=== PATIENT | female | born 1995 | race Caucasian/White ===

== ENCOUNTER 2017-07-17 21:16 | Emergency (ER) | payer OTHER, MEDICAID ==
[~2017-07-17] VITALS: Ht 160 cm; Wt 68.0 kg
--- OUTSIDE RECORDS SUMMARY | 2017-07-17 21:34 | External Medical Summary Rpt | CCD ---
Author Author , MARY Organization MARY Address Unknown Phone Care Team Providers Care Machine Accountant Name Role Phone ALLERGY, ASTHMA & Unavailable Unavailable IMMUNOLOGY, ALLERGY, ASTHMA & IMMUNOLOGY [facility], Unavailable Unavailable [facility] BLU, BLU Unavailable Unavailable AWOSIKA CHRISS, AWOSIKA Unavailable Unavailable CHRISS MERARY ADA, MERARY Unavailable Unavailable ADA MERARY ADA, MERARY Unavailable Unavailable ADA GEORGE, GEORGE Unavailable Unavailable MCDANIELS, MCDANIELS Unavailable Unavailable MCDANIELS G, MCDANIELS G Unavailable Unavailable MCDANIELS G, MCDANIELS G Unavailable Unavailable MCDANIELS GAR, MCDANIELS Unavailable Unavailable GAR LAWRENCE DIXON, LAWRENCE DIXON Unavailable Unavailable LAWRENCE DIXON, LAWRENCE DIXON Unavailable Unavailable TRACIE OTILIA, TRACIE OTILIA Unavailable Unavailable TRACIE OTILIA, TRACIE OTILIA Unavailable Unavailable HAGENSCHNEIDER DANETTE, Unavailable Unavailable HAGENSCHNEIDER DANETTE HARLAMERT HEN, Unavailable Unavailable HARLAMERT HEN JAMES, JAMES Unavailable Unavailable JOYNER, JOYNER Unavailable Unavailable HOGGE ROOPA, HOGGE ROOPA Unavailable Unavailable HOGGE ROOPA, HOGGE ROOPA Unavailable Unavailable HURST KENNY, HURST KENNY Unavailable Unavailable HURST KENNY, HURST KENNY Unavailable Unavailable TY, TY Unavailable Unavailable TY ROBE, TY Unavailable Unavailable [facility], [facility] Unavailable Unavailable [facility] LIVAS SAMMI, LIVAS SAMMI Unavailable Unavailable LIVAS SAMMI, LIVAS SAMMI Unavailable Unavailable [facility], Unavailable Unavailable [facility] Unavailable [facility]AT, [facility] Unavailable Unavailable [facility], [facility] Unavailable Unavailable MEDICAL, [facility] Unavailable Unavailable MEDICAL, [facility] Unavailable [facility]available [facility] Unavailable [facility]available [facility] ALLA NATH Unavailable Unavailable DEYVI OLZESKI DEYVI, OLZESKI Unavailable Unavailable DEYVI ZUNIGA, UZNIGA Unavailable Unavailable DOUGLAS ROS, DOUGLAS Unavailable Unavailable ROS PORNOY JHON, PORNOY Unavailable Unavailable JHON MORENA GWENDOLYN, MORENA Unavailable Unavailable GWENDOLYN MORENA GWENDOLYN, MORENA Unavailable Unavailable GWENDOLYN [facility], Unavailable Unavailable [facility], Unavailable Unavailable [facility], SHOWER Unavailable Unavailable [facility], SHOWER Unavailable Unavailable [facility] SPADY, SPADY Unavailable Unavailable CLARK, CLARK Unavailable Unavailable CLARK KER, CLARK KER Unavailable Unavailable RICK HODAN, RICK Unavailable Unavailable HODAN BRIA DON, BRIA Unavailable Unavailable DON BRIA DON, BRIA Unavailable Unavailable DON BRIA SHIREEN, BRIA Unavailable Unavailable SHIREEN Purpose Continuity of Care Document - 10-19-2011 through 2016 Problems Code Diagnosis DOS Provider Status E162 HYPOGL[facility]EMI [facility]-17-[facility]ICAL K047 PERIAPICAL 05-17-2017 [facility] ABSCESS N EMERGENCY WITHOUT PHYS SINUS L239 ALLERGIC 05-17-2017 [facility] CONTACT [facility] DERMATITIS UNSPECIFIED CAUSE Z789 OTHER 05-17-2017 [facility] SPECIFIED P[facility] HEALTH STATUS Z880 ALLERGY 05-17-2017 [facility] STATUS TO REGIONAL [place] MEDICAL H5213 MYOPIA 03-22-2017 [facility] OPTICAL K30622 UNSPECIFIED 12-21-2016 [facility] ASTHMA REGIONAL UNCOMPLICAT MEDICAL ED K219 GASTRO-ESOP 12-21-2016 [facility] H REFLUX REGIONAL DISEASE MEDICAL WITHOUT ESOPHAGITIS K811 CHRONIC 12-21-2016 [facility] CHOLECYSTIT GENERAL IS SURGERY K828 OTHER 12-21-2016 [facility] SPECIFIED REGIONAL DISEASES OF MEDICAL GALLBLADDER Z6829 BODY MASS 12-21-2016 [facility] INDEX BMI REGIONAL 29.0-29.9 MEDICAL ADULT Z720 TOBACCO USE 12-21-2016 [facility] REGIONAL MEDICAL R1084 GENERALIZED 11-29-2016 [facility] ABDOMINAL REGIONAL PAIN MEDICAL R110 NAUSEA 11-29-2016 [facility] R109 UNSPECIFIED 11-20-2016 [facility] PAIN ASSOCIAT R112 NAUSEA WITH 11-20-2016 [facility] UNSPECIFIED ASSOCIAT J309 ALLERGIC 08-06-2016 ALLERGY, RHINITIS ASTHMA & UNSPECIFIED IMMUNOLOGY J02733 ENCOUNTER 07-16-2016 [facility] E CONTRACEPT DEVICE Z309 ENCOUNTER 07-16-2016 [facility] VE MANAGEMENT UNS [id number] PAIN IN 06-29-2016 [facility] LEFT ARM REGIONAL MEDICAL Z3040 ENCOUNTER 06-29-2016 [facility] SURVEILLANC ASSOCIAT E CONTRACEPTI VES UNS B86 SCABIES 06-01-2016 [facility] J3089 OTHER 06-01-2016 [facility] ALLERGIC PSC RHINITIS D07189 OTHER 06-01-2016 [facility] ASTHMA PSC L2389 ALLERGIC 06-01-2016 [facility] CONTACT [facility] DERMATITIS DUE TO OTHER AGENTS N898 OTHER 04-18-2016 MEDICAL SPECIFIED DIAGNOSTIC NONINFLAMMA [facility] TORY DISORDERS VAGINA R27852 ENCOUNTER 04-18-2016 MEDICAL PSYCHOLOGICAL SCIENCE PROFESSOR EXAM DIAGNOSTIC GENERAL RTN [facility] W/O ABNORMAL FIND Z113 ENCOUNTER 04-18-2016 MEDICAL SCREEN DIAGNOSTIC INFECTIONS [facility] SEXL MODE TRANSMISSN Z118 ENCOUNTER 04-18-2016 MEDICAL SCREEN DIAGNOSTIC OTHER [facility] INFECTIOUS & PARASITIC DZ H1045 OTHER 08-16-2015 ALLERGY, CHRONIC ASTHMA & ALLERGIC IMMUNOLOGY CONJUNCTIVI TIS J0190 ACUTE 08-16-2015 ALLERGY, SINUSITIS ASTHMA & UNSPECIFIED IMMUNOLOGY 3671 MYOPIA 06-22-2015 MERARY ADA 6828 CELLULITIS 02-11-2015 [facility] AND ABSCESS PSC OF OTHER SPECIFIED SITE 6825 CELLULITIS 02-09-2015 [facility] ABSCESS [facility] OF BUTTOCK 6823 CELLULITIS 02-08-2015 [facility] AND ABSCESS N EMERGENCY OF UPPER PHYS ARM AND FOREARM 87325 UNS 01-27-2015 [facility] GASTRITIS&G PSC ASTRODUODIT IS W/O MENTION HEMORR 6260 ABSENCE OF 01-27-2015 [facility] MENSTRUATIO PSC N 4619 ACUTE 01-11-2015 [facility] SINUSITIS, PSC UNSPECIFIED V2540 UNSPECIFIED 07-28-2014 [facility] VE SURVEILLANC E 19106 ASTHMA 06-24-2014 [facility] UNSPECIFIED PSC WITH EXACERBATIO N V255 INSERTION 04-20-2013 LAWRENCE DIXON OF IMPLANTABLE SUBDERMAL CONTRACEPTI VE V242 ROUTINE 04-03-2013 HOGGE ROOPA FOLLOW-UP V258 OTHER 04-03-2013 HOGGE ROOPA SPECIFIED CONTRACEPTI VE MANAGEMENT 36870 POOR 02-26-2013 TRACIE OTILIA GROWTH MGMT MOTH ANTPRTM COND/COMP V270 OUTCOME OF 02-26-2013 TRACIE OTILIA DELIVERY SINGLE LIVEBORN 85038 ASTHMA, 02-24-2013 [facility] UNSPECIFIED REGIONAL , MEDICAL UNSPECIFIED STATUS 650 NORMAL 02-24-2013 HURST KENNY DELIVERY 86383 POOR 02-24-2013 [facility] GROWTH REGIONAL AFFECT MEDICAL MANAGEMENT MOTH DELIV 37093 OTH 02-24-2013 [facility] [place] [facility] CONDS AFFECT MANAGEMENT MOTH DELIV 26790 ABN FETL 02-24-2013 [facility] HRT REGIONAL RATE/RHYTHM MEDICAL DELIV W/WO ANTPRTM COND 48002 HIGH 02-24-2013 [facility] VAG[facility] REGIONAL LACERATION MEDICAL WITH DELIVERY 90513 UTERINE 02-20-2013 TRACIE OTILIA SIZE DATE DISCREPANCY ANTPRTM COND/COMPL V220 SUPERVISION 02-20-2013 TRACIE OTILIA OF NORMAL FIRST V2383 SUPERVISION 02-20-2013 TRACIE OTILIA HIGH-RISK PG YOUNG PRIMIGRAVID A V284 02-20-2013 TRACIE OTILIA SCR GROWTH RETARDATION USING US 6259 UNSPEC 02-06-2013 [facility] W/FEMALE GENITAL ORGANS V286 SCREENING 02-06-2013 MORENA GWENDOLYN OF STREPTOCOCC US B 4779 ALLERGIC 02-03-2013 LIVAS SAMMI RHINITIS CAUSE UNSPECIFIED 15237 OTHER 02-03-2013 LIVAS SAMMI DISEASES OF NASAL CAVITY AND SINUSES V061 NEED PROPH 01-22-2013 SHOWER WALTERS VAC W/COMB DIPHTH-TETA NUS-PERTUSS VAC 0419 BACTERIAL 01-21-2013 ALLA CARNES INFECTION UNSPECIFIED CCE & UNS SITE 30638 UNSPECIFIED 01-21-2013 ALLA CARNES VAGINITIS AND VULVOVAGINI TIS 14955 UNSPECIFIED 01-21-2013 ALLA CARNES ABNORMALITY OF LABOR ANTEPARTUM V6545 COUNSELING 01-08-2013 ALLA CARNES OTHER SEXUALLY TRANSMITTED DISEASES V2889 OTHER 12-12-2012 TR[facility] OT[facility]IA SPECIFIED SCREENING V2881 ENCOUNTER 10-17-2012 BRIA DOBBS FOR ANATOMIC SURVEY 3829 UNSPECIFIED 09-07-2012 [facility] OTITIS REGIONAL MEDIA MEDICAL 6268 OTH D/O 08-12-2012 [facility] MENSTRUATIO N&OTH ABN BLEED FE GNT TRACT V0481 NEED 08-12-2012 [facility] PROPHYLACTI C VACCINATION &INOCULATIO N FLU V7242 08-12-2012 [facility] DOBBS EXAMINATION OR TEST POSITIVE RESULT 15170 WHEEZING 07-15-2012 [facility] 7862 COUGH 10-16-2012 [facility] 490 BRONCHITIS 07-08-2012 MCDANIELS G NOT SPECIFIED ACUTE OR CHRONIC V7231 ROUTINE 05-05-2012 [facility] DOBBS GYNECOLOGIC AL EXAMINATION V7388 SPECIAL SCR 05-05-2012 BRIA RINKU EXAMINATION OTH SPEC CHLAMYDIAL DZ V745 SCREENING 05-05-2012 BRI[facility] DOBBS EXAMINATION FOR VENEREAL DISEASE 920 CONTUSION 04-28-2012 CLARK KER OF FACE SCALP AND NECK EXCEPT EYE E9179 OTHER 04-28-2012 CLARK KER STRIKING AGAINST W/WO SUBSEQUENT FALL 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 6822 CELLULITIS 03-14-2012 ENEDELIA Seymour AND ABSCESS OF TRUNK 72519 ACUTE 02-12-2012 LIVAS SAMMI ATOPIC CONJUNCTIVI TIS 6929 CONTACT 11-26-2011 ENEDELIA Seymour DERMATITIS& OTHER ECZEMA DUE UNSPEC CAUSE 94461 OTHER FOOT 11-26-2011 [facility] 44305 UNSPECIFIED 10-19-2011 ENEDELIA Seymour VIRAL INFECTION IN CCE & UNS SITE 462 ACUTE 10-19-2011 ENEDELIA Seymour PHARYNGITIS Allergies, Adverse Reactions, Alerts Clinical Alert Notifications Alert Asthma: no influenza vaccine in the last 365 days Medications Na ND Rx Da Fi Fi Am Da Di Ph RX Ph St me C No te ll ll ou ys ag ar # ys at rm s nt no ma ic us Or Da si cy ia de te s n re d CL 63 08 09 40 10 00 RI Ac IN 30 -1 -2 .0 00 L- ti DA 40 8- 2- 00 07 MA ve MY 69 20 20 90 RT CI 20 17 17 03 N 5 25 PH HC AR L MA 15 CY 0 MG #1 56 CA 9 PS UL E PHILLIPS 00 08 09 3. 28 00 WA Ac LA 37 -1 -1 00 00 L- ti NE 83 0- 5- 0 07 MA ve 34 20 20 89 RT PA 05 17 17 21 TC 3 33 PH H AR MA CY #1 56 9 PHILLIPS 00 06 08 3. 28 00 WA Ac LA 37 -3 -0 00 00 L- ti NE 83 0- 4- 0 07 MA ve 34 20 20 89 RT PA 05 17 17 21 TC 3 33 PH H AR MA CY #1 56 9 PHILLIPS 00 06 07 3. 21 00 WA Ac LA 37 -0 -0 00 00 L- ti NE 83 3- 7- 0 07 MA ve 34 20 20 86 RT PA 05 17 17 21 TC 3 60 PH H AR MA CY #1 56 9 LO 00 05 06 30 30 00 WA Ac RA 78 -1 -1 .0 00 L- ti TA 15 5- 6- 00 08 MA ve DI 07 20 20 83 RT NE 70 17 17 95 1 98 PH 10 AR MA MG CY TA #5 BL 71 ET TR 45 05 06 30 14 00 WA Ac IA 80 -1 -1 .0 00 L- ti MC 20 6- 6- 00 07 MA ve IN 04 20 20 65 RT OL 93 17 17 99 ON 5 07 PH E AR 0. MA 5% CY OI #5 NT 71 ME NT PHILLIPS 00 05 06 3. 21 00 WA Ac LA 37 -0 -0 00 00 L- ti NE 83 4- 9- 0 07 MA ve 34 20 20 86 RT PA 05 17 17 21 TC 3 60 PH H AR MA CY #1 56 9 PHILLIPS 00 04 05 3. 21 00 WA Ac LA 37 -0 -1 00 00 L- ti NE 83 6- 2- 0 07 MA ve 34 20 20 86 RT PA 05 17 17 21 TC 3 60 PH H AR MA CY #1 56 9 CL 00 04 05 21 7 00 WA Ac IN 59 -1 -1 .0 00 L- ti DA 15 1- 2- 00 07 MA ve MY 70 20 20 87 RT CI 80 17 17 84 N 1 24 PH HC AR L MA 15 CY 0 MG #1 56 CA 9 PS UL E ## 03 04 60 30 00 WA Ac ## -2 -2 .0 00 L- ti ## 5- 8- 00 08 MA ve ## 20 20 84 RT ## 17 17 71 # 45 PH AR MA CY #1 56 9 HY 53 03 04 [address] 74 -2 -2 .0 00 S ti OC 60 4- 8- 00 01 PH ve OD 10 20 20 32 AR ON 90 17 17 30 MA -A 1 31 CY CE TA #0 NM 23 NO 32 PH EN 5- 32 5 PHILLIPS 00 03 04 3. 21 00 WA Ac LA 37 -0 -1 00 00 L- ti NE 83 9- 4- 0 07 MA ve 34 20 20 86 RT PA 05 17 17 21 TC 3 60 PH H AR MA CY #1 56 9 PHILLIPS 00 02 03 3. 21 00 WA Ac LA 37 -0 -1 00 00 L- ti NE 83 9- 7- 0 07 MA ve 34 20 20 86 RT PA 05 17 17 21 TC 3 60 PH H AR MA CY #1 56 9 ## 02 03 60 30 00 WA Ac ## -1 -1 .0 00 L- ti ## 5- 7- 00 08 MA ve ## 20 20 84 RT ## 17 17 71 # 45 PH AR MA CY #1 56 9 PIHLLIPS 00 01 02 3. 21 00 WA Ac LA 37 -1 -1 00 00 L- ti NE 83 2- 7- 0 07 MA ve 34 20 20 86 RT PA 05 17 17 21 TC 3 60 PH H AR MA CY #1 56 9 PHILLIPS 00 12 01 3. 28 00 WA Ac LA 37 -1 -2 00 00 L- ti NE 83 5- 0- 0 07 MA ve 34 20 20 84 RT PA 05 16 17 72 TC 3 04 PH H AR MA CY #1 56 9 Procedures Procedure DOS Code Location Performer Comment COMPREHEN 47754 [facility] SIVE [address] [facility] [place] [address] [facility] INSULIN [address] [facility] MEDICAL MEDICAL COLLECTIO 13961 [facility] ME[facility] N VENOUS [address] [facility] V[facility]IPUNCT [facility] MEDICAL URE HEMOGLOBI 00949 [facility] ME[facility] N [address] [facility] RADHA A1C MEDICAL MEDICAL FRAMES V2020 LENIN ZUNIGA PURCHASES 7 OPTICAL SPHERE V2101 LENIN ZUNIGA SINGLE 7 OPTICAL VISION +/- 4.12 +/- 7.00D PER LENS SCRATCH V2760 LENIN ZUNIGA RESISTANT 7 OPTICAL COATING PER LENS LENS V2784 LENIN ZUNIGA POLYCARBO 7 OPTICAL MATT OR EQUAL ANY INDEX PER LENS FITTING 77633 LENIN ZUNIGA SPECTACLE 7 OPTICAL S XCPT APHAKIA MONOFOCAL OPHTH 79064 [facility] MEDICAL 7 XM&EVAL COMPRE NEW PT 1/> VST DETERMINA 30057 [facility] TION 7 REFRACTIV E STATE ANES 86749 [facility] INTRAPERI 7 LTH TONEAL ANESTHESI UPPER A PSC ABDOMEN W/LAPS NOS INJECTION J2250 [facility] 7 W W [place] REGIONAL REGIONAL HCL PER MEDICAL MEDICAL 1 MG CHOLANGIO 93256 [facility] ANYA GRAPHY&/P 7 ANCREATOG RADIOLOGY [facility] NTRAOP RS&I LAPS SURG 14539 [facility] 7 W W CHOLECYST REGIONAL REGIONAL ECTOMY MEDICAL MEDICAL W/CHOLANG IOGRAPHY LEVEL III 18417 [facility] SURG 7 W W PATHOLOGY REGIONAL REGIONAL MEDICAL MEDICAL GROSS&AGUS ROSCOPIC EXAM RAD EXP G9500 [facility] INDICES/E 7 XP TM & RADIOLOGY NUMB ASSOCIAT FLUORO IMAGES DOC INJECTION J2370 [facility] 7 W W PHENYLEPH REGIONAL REGIONAL RINE HCL MEDICAL MEDICAL UP TO 1 ML INJECTION J2765 [facility] MEAD[facility]IE 7 W W METOCLOPR REGIONAL REGIONAL AMIDE HCL MEDICAL MEDICAL UP TO 10 MG INJECTION J1885 [facility] 7 W W KETOROLAC REGIONAL REGIONAL MEDICAL MEDICAL TROMETHAM INE PER 15 MG INJECTION J2704 [facility] PROPOFOL 7 W W 10 MG REGIONAL REGIONAL MEDICAL MEDICAL INJECTION J2710 [facility] 7 W W NEOSTIGMI REGIONAL REGIONAL NE MEDICAL MEDICAL METHYLSUL FATE UP TO 0.5 MG INJECTION J3010 [facility] FENTANYL 7 W W CITRATE REGIONAL REGIONAL 0.1 MG MEDICAL MEDICAL RINGERS J7120 [facility] LACTATE 7 W W INFUSION REGIONAL REGIONAL UP TO MEDICAL MEDICAL 1000 CC URINE 58960 [facility] 7 W W TEST REGIONAL REGIONAL VISUAL MEDICAL MEDICAL COLOR CMPRSN METHS HEPATOBIL 71315 [facility] SYST 7 W W IMAG INC REGIONAL REGIONAL GB MEDICAL MEDICAL W/PHARMA INTERVENJ INJECTION J2805 [facility] 7 W W SINCALIDE REGIONAL REGIONAL 5 MEDICAL MEDICAL MICROGRAM S TECHNETIU A9537 SHANELL Gomez TC-99M 7 W W [facility] REGIONAL REGIONAL N DX UP MEDICAL MEDICAL TO 15 MCI FINAL G9551 BRO GEORGE REPR ABD [address] RADIOLOGY W/O ASSOCIAT [place]IDNT [place]: [place] [address] BRO GEORGE ABDOMINAL 7 REAL RADIOLOGY TIME ASSOCIAT W/IMAGE LIMITED PREPJ& 55829 ALLERGY, LIVAS SAMMI ALLERGEN 6 ASTHMA & IMMUNOTHE IMMUNOLOG RAPY Y 1/PRODUCTION MATERIAL COORDINATOR ANTIGEN REMOVAL 85833 [facility] [place] OLZESKI NON-BIODE 6 [facility] DRUG CTR DELIVERY IMPLANT RADEX 72787 SHANELL REECE HUMERUS 6 W W MINIMUM 2 REGIONAL REGIONAL VIEWS MEDICAL MEDICAL PREPJ& 70983 ALLERGY, LIVAS SAMMI ALLERGEN 6 ASTHMA & IMMUNOTHE IMMUNOLOG RAPY Y 1/PRODUCTION MATERIAL COORDINATOR ANTIGEN IADNA 02404 MEDICAL MEDICAL CHLAMYDIA 6 DIAGNOSTI DIAGNOSTI [facility] TRACHOMAT IS AMPLIFIED PROBE TQ IADNA 78861 MEDICAL MEDICAL NILDA 6 DIAGNOSTI DIAGNOSTI SPECIES [facility] AMPLIFIED PROBE TQ IADNA 86214 MEDICAL MEDICAL GARDNEREL 6 DIAGNOSTI DIAGNOSTI LA C [facility] VAGINALIS AMPLIFIED PROBE TQ IADNA 87450 MEDICAL MEDICAL NEISSERIA 6 DIAGNOSTI DIAGNOSTI [facility] GONORRHOE AE AMPLIFIED PROBE TQ IADNA 28742 MEDICAL MEDICAL TRICHOMON 6 DIAGNOSTI DIAGNOSTI [facility] VAGINALIS AMPLIFIED PROBE TECH IADNA NOS 70245 MEDICAL MEDICAL 6 DIAGNOSTI DIAGNOSTI AMPLIFIED C [facility] PROBE TQ EACH ORGANISM PREPJ& 39665 ALLERGY, LIVAS SAMMI ALLERGEN 6 ASTHMA & IMMUNOTHE IMMUNOLOG RAPY Y 1/PRODUCTION MATERIAL COORDINATOR ANTIGEN PREPJ& 54198 ALLERGY, LIVAS SAMMI ALLERGEN 6 ASTHMA & IMMUNOTHE IMMUNOLOG RAPY Y 1/PRODUCTION MATERIAL COORDINATOR ANTIGEN PREPJ& 61126 ALLERGY, LIVAS SAMMI ALLERGEN 6 ASTHMA & IMMUNOTHE IMMUNOLOG RAPY Y 1/PRODUCTION MATERIAL COORDINATOR ANTIGEN PREPJ& 98737 ALLERGY, LIVAS SAMMI ALLERGEN 5 ASTHMA & IMMUNOTHE IMMUNOLOG RAPY Y 1/PRODUCTION MATERIAL COORDINATOR ANTIGEN SPMTRY 72372 ALLERGY, DOUGLAS W/VC 5 ASTHMA & ROS EXPIRATOR IMMUNOLOG Y ISIDRA Y W/WO MXML VOL VNTJ PROF SVCS 32070 [facility] ENEDELIA ALLG 5 PSC GAR IMMNTX X W/PRV ALLGIC XTRCS 1 NJX PREPJ& 64659 ALLERGY, LIVAS SAMMI ALLERGEN 5 ASTHMA & IMMUNOTHE IMMUNOLOG RAPY Y 1/PRODUCTION MATERIAL COORDINATOR ANTIGEN PERCUTANE 50879 ALLERGY, DOUGLAS OUS TESTS 5 ASTHMA & ROS IMMUNOLOG W/ALLERGE Y DARYN EXTRACTS SCRATCH V2760 MERARY REAGAN RESISTANT 5 ADA ADA COATING PER LENS SPHERE V2101 MERARY REAGAN SINGLE 5 ADA ADA VISION +/- 4.12 +/- 7.00D PER LENS FRAMES V2020 MERARY REAGAN PURCHASES 5 ADA ADA FITTING 17402 MERARY REAGAN SPECTACLE 5 ADA ADA S XCPT APHAKIA MONOFOCAL LENS V2784 MERARY REAGAN POLYCARBO 5 ADA ADA MATT OR EQUAL ANY INDEX PER LENS OPHTH 48031 [facility] 5 CHRISS CHRISS XM&EVAL COMPRHNSV ESTAB PT 1/> INCISION 18117 [facility] & 5 [place]O SHIREEN DRAINAGE EMERGENCY ABSCESS PHYS COMPLICAT ED/MULTIP LE URINE 97790 [facility] ENEDELIA 5 PSC GAR TEST [place] [address] SHANELL REECE HPYLORI 5 W W STOOL [facility] MEDICAL FRAMES V2020 MERARY REAGAN PURCHASES 4 ADA ADA RPR&REFIT 40980 MERARY REAGAN G 4 ADA ADA SPECTACLE S EXCEPT APHAKIA FITTING 44993 LENIN REAGAN SPECTACLE 4 OPTICAL ADA S XCPT APHAKIA MONOFOCAL FRAMES V2020 LENIN REAGAN PURCHASES 4 OPTICAL ADA SPHERE V2101 LENIN REAGAN SINGLE 4 OPTICAL ADA VISION +/- 4.12 +/- 7.00D PER LENS SCRATCH V2760 LENIN REAGAN RESISTANT 4 OPTICAL ADA COATING PER LENS LENS V2784 LENIN REAGAN POLYCARBO 4 OPTICAL ADA MATT OR EQUAL ANY INDEX PER LENS OPHTH 35931 [facility] 4 CHRISS CHRISS XM&EVAL COMPRHNSV ESTAB PT 1/> INSJ 35321 LAWRENCE DIXON LAWRENCE DIXON NON-BIODE 3 GRADABLE DRUG DELIVERY IMPLANT URINE 63815 LAWRENCE DIXON LAWRENCE DIXON 3 TEST VISUAL COLOR CMPRSN METHS ETONOGEST J7307 LAWRENCE DIXON LAWRENCE DIXON REL 3 CNTRACPT IMPL SYS INCL IMPL & SPL POSTPARTU 51283 JESSE Gomez [facility] ONLY [facility] 83232 TRACIE HILLY [facility] DISCHARGE 3 DAY MANAGEMEN T 30 MIN/< SBSQ 39915 TRACIE OTILIA HODGES OTIL[facility] 3 CARE/DAY 15 MINUTES VAGINAL 50301 [facility]AC[facility] DELIVERY 3 [place] V 639[address] [facility] HAR[facility] SURG 3 [place] INC HEN PATHOLOGY GROSS&AGUS ROSCOPIC EXAM NEURAXIAL 16975 HURST KENNY HURST KENNY LABOR 3 ANALG/ANE S PLND VAGINAL DELIVERY INDUCTION 7301 [facility] MEADOW[facility] LABOR 3 W W ARTIFICIA REGIONAL REGIONAL L RUPTURE MEDICAL MEDICAL MEMBRANES OTHER 7359 [facility] MEAD[facility] MANUALLY 3 W W ASSISTED REGIONAL REGIONAL DELIVERY MEDICAL MEDICAL 73176 [facility] NONSTRESS 3 TEST URNLS DIP 27282 [facility] 3 STICK/TAB LET RGNT NON-AUTO W/O MICRSCP US PREG 80003 [facility] UTERUS 3 REAL TIME F/U TRNSABDL PER FETUS URNLS DIP 94271 [facility] 3 STICK/TAB LET RGNT NON-AUTO W/O MICRSCP URNLS DIP 20976 MORENA VERASAN 3 GWENDOLYN GWENDOLYN STICK/TAB LET RGNT NON-AUTO W/O MICRSCP IADNA 74623 [facility] NEISSERIA 3 DIAGNOSTI DIAGNOSTI CS CS GONORRHOE AE AMPLIFIED PROBE TQ CUL 91517 GENESISWSOFI HURTADOWVIE PRSMPTV 3 W W [facility] ORGANISM MEDICAL MEDICAL SCRN W/COLONY ESTIMJ IADNA 42653 [facility] CHLAMYDIA 3 DIAGNOSTI DIAGNOSTI CS CS TRACHOMAT IS AMPLIFIED PROBE TQ NITRIC 23514 LIVAS SAMMI LIVAS SAMMI OXIDE 3 GAS DETERMINA TION SPMTRY 36748 LIVAS SAMMI LIVAS SAMMI W/VC 3 EXPIRATOR Y ISIDRA W/WO MXML VOL VNTJ URNLS DIP 16719 SHOWER SHOWER 3 WALTER[facility] WALTERS STICK/TAB LET RGNT NON-AUTO W/O MICRSCP EVAL C/V 66300 [facility] AMNIOTIC [address] [facility] PROTEIN MEDICAL MEDICAL QUAL EA SPECIMEN URNLS DIP 42892 [facility] MEADOW[facility] 3 W W STICK/TAB [facility] LET MEDICAL MEDICAL [place] [address]88 [facility]OW[facility] NONSTRESS [address] [facility] MEDICAL MEDICAL SMR PRIM 67791 [facility] ME[facility] SRC WET 3 W W [facility] G0378 [facility]IE ME[facility] OBSERVATI [address] [facility] SERVICE MEDICAL MEDICAL PER HOUR IADNA 42682 MEDICAL MEDICAL CHLAMYDIA 3 [facility] TRACHOMAT IS AMPLIFIED PROBE TQ IADNA 53484 MEDICAL MEDICAL GARDNEREL 3 DIAGNOSTI DIAGNOSTI [facility] VAGINALIS AMPLIFIED PROBE TQ IADNA NOS 43386 MEDICAL MEDICAL 3 DIAGNOSTI DIAGNOSTI AMPLIFIED [facility] PROBE TQ EACH ORGANISM IADNA 40945 MEDICAL MEDICAL NEISSERIA 3 [facility] GONORRHOE AE AMPLIFIED PROBE TQ PREPJ& 05799 LIVAS SAMMI LIVAS SAMMI ALLERGEN 3 IMMUNOTHE RAPY 1/PRODUCTION MATERIAL COORDINATOR ANTIGEN URNLS DIP 36936 TRACIE OTILIA TRACIE OTILIA 3 STICK/TAB LET RGNT NON-AUTO W/O MICRSCP URNLS DIP 43482 TRACIE OTILIA TRACIE OTILIA 3 STICK/TAB LET RGNT NON-AUTO W/O MICRSCP US PREG 57518 TRACIE OTILIA TRACIE OTILIA UTERUS 3 REAL TIME F/U TRNSABDL PER FETUS GLUCOSE 90047 [facility]ST [facility]ST TOLERANCE 3 DIAGNOSTI DIAGNOSTI TEST GTT CS CS 3 SPECIMENS URNLS DIP 04643 MORENA MORENA 3 GWENDOLYN GWENDOLYN STICK/TAB LET RGNT NON-AUTO W/O MICRSCP PREPJ& 86234 LIVAS SAMMI LIVAS SAMMI ALLERGEN 3 IMMUNOTHE RAPY 1/PRODUCTION MATERIAL COORDINATOR ANTIGEN URNLS DIP 45546 BRIA FRASER 3 DON DON STICK/TAB LET RGNT NON-AUTO W/O MICRSCP US PREG 59416 BRIA BRIA UTERUS 3 DON DON W/DETAIL MARQUEZ 1ST GESTATION URNLS DIP 77726 SHOWER SHOWER 2 WALTERS WALTERS STICK/TAB LET RGNT NON-AUTO W/O MICRSCP IADNA 43532 MEDICAL MEDICAL CHLAMYDIA 2 DIAGNOSTI DIAGNOSTI [facility] TRACHOMAT IS AMPLIFIED PROBE TQ IADNA 57089 MEDICAL MEDICAL NEISSERIA 2 [facility]AGNOSTI [facility]AGNO[facility] GONORRHOE AE AMPLIFIED PROBE TQ PRESSURIZ 66716 SHANELL REECE ED/NONPRE [address] [facility] INHALATIO MEDICAL MEDICAL N TREATMENT COLLECTIO 43670 SHOWER SHOWER N VENOUS 2 [place] [address] SHOWER SHOWER 2 [facility] UTERUS 14 WK TRANSABDL GESTAT PREPJ& 93317 LIVAS SAMMI LIVAS SAMMI ALLERGEN 2 IMMUNOTHE RAPY 1/PRODUCTION MATERIAL COORDINATOR ANTIGEN URINE 59349 BRIA BRIA 2 DON DON TEST VISUAL COLOR CMPRSN METHS PROF SVCS 60543 MCDANIELS G ENEDELIA G ALLG 2 IMMNTX X W/PRV ALLGIC XTRCS 1 NJX RADIOLOGI 74033 SHANELL REECE C EXAM 2 W W CHEST 2 [facility] FRONTAL&L ATERAL PROF [facility] 73146 ENEDELIA G MCDANIELS G ALLG 2 IMMNTX X W/PRV ALLGIC XTRCS 1 NJX PROF SVCS 46128 MCDANIELS G MCDANEILS G ALLG 2 IMMNTX X W/PRV ALLGIC XTRCS 1 NJX PROF [facility] 02123 ENEDELIA G ENEDELIA G ALLG 2 IMMNTX X W/PRV ALLGIC XTRCS NJXS PREPJ& 91669 LIVAS SAMMI LIVAS SAMMI ALLERGEN 2 IMMUNOTHE RAPY 1/PRODUCTION MATERIAL COORDINATOR ANTIGEN PROF [facility] 59355 ENEDELIA MCDANIELS G ALLG 2 IMMNTX X W/PRV ALLGIC XTRCS 1 NJX PROF [facility] 48644 ENEDELIA G MCDANIELS G ALLG 2 IMMNTX X W/PRV ALLGIC XTRCS 1 NJX PROF [facility] 05961 ENEDELIA MCDANIELS G ALLG 2 IMMNTX X W/PRV ALLGIC XTRCS 1 NJX PROF [facility] 24036 ENEDELIA MCDANIELS G ALLG 2 IMMNTX X W/PRV ALLGIC XTRCS 1 [place] [address] ENEDELIA MCDANIELS G ALLG 2 IMMNTX X W/PRV ALLGIC XTRCS 1 NJX IADNA 91639 [facility] NEISSERIA 2 DIAGNOSTI DIAGNOSTI CS CS GONORRHOE AE AMPLIFIED PROBE TQ GONADOTRO 24862 [facility] PIN 2 DIAGNOSTI DIAGNOSTI CHORIONIC CS CS QUANTITAT ILAN URINE 26313 BRIA BRIA 2 DON DON TEST VISUAL COLOR CMPRSN METHS IADNA 77491 [facility] CHLAMYDIA 2 DIAGNOSTI DIAGNOSTI CS CS [place]OM[place] [address] ENEDELIA MCDANIELS G ALLG 2 IMMNTX X W/PRV ALLGIC XTRCS 1 NJX RADEX 86347 [facility] NASAL 2 EIDER DANETTE B[facility] RADIOLOGY COMPLETE ASSOCIAT MINIMUM 3 VIEWS PROF [facility] 32663 ENEDELIA Seymour ALLG 2 IMMNTX X W/PRV ALLGIC XTRCS 1 NJX PROF [facility] 69187 ENEDELIA Seymour ALLG 2 IMMNTX X W/PRV ALLGIC XTRCS 1 NJX PREPJ& 52253 LIVAS SAMMI LIVAS SAMMI ALLERGEN 2 IMMUNOTHE RAPY 1/PRODUCTION MATERIAL COORDINATOR ANTIGEN PROF [facility] 33676 ENEDELIA Seymour ALLG 2 IMMNTX X W/PRV ALLGIC XTRCS 1 NJX DETERMINA 39494 [facility]OS[facility] AWOSIKA TION 2 CHRISS CHRISS REFRACTIV E STATE OPH[facility] 95488 AWOS[facility] AWOSIKA MEDICAL 2 CHRISS CHRISS XM&EVAL COMPRE NEW PT 1/> VST NITRIC 22922 LIVAS SAMMI LIVAS SAMMI OXIDE 2 GAS DETERMINA TION SPMTRY 98777 LIVAS SAMMI LIVAS SAMMI W/VC 2 EXPIRATOR Y ISIDRA W/WO MXML VOL VNTJ PROF [facility] 99650 ENEDELIA MCDANIELS G ALLG 2 IMMNTX X W/PRV ALLGIC XTRCS 1 NJX PROF [facility] 85219 ENEDELIA MCDANIELS G ALLG 2 IMMNTX X W/PRV ALLGIC XTRCS 1 NJX PROF [facility] 85075 ENEDELIA Seymour ALLG 2 IMMNTX X W/PRV ALLGIC XTRCS 1 NJX PROF [facility] 95813 ENEDELIA MCDANIELS G ALLG 2 IMMNTX X W/PRV ALLGIC XTRCS 1 NJX PREPJ& 53661 LIVAS SAMMI LIVAS SAMMI ALLERGEN 2 IMMUNOTHE RAPY 1/PRODUCTION MATERIAL COORDINATOR ANTIGEN NITRIC 46786 LIVAS SAMMI LIVAS SAMMI OXIDE 2 GAS DETERMINA TION DEMO&/MEI 47686 LIVAS SAMMI LIVAS SAMMI L OF PT 2 UTILIZ AERSL GEN/NEB/I NHLR/IP BRNCDILAT 19047 LIVAS SAMMI LIVAS SAMMI RSPSE 2 SPMTRY PRE&POST- BRNCDILAT ADMN PERCUTANE 86809 LIVAS SAMMI LIVAS SAMMI OUS TESTS 2 W/ALLERGE DARYN EXTRACTS DEMO&/MEI 76590 ENEDELIA MCDANIELS G L OF PT 2 UTILIZ AERSL GEN/NEB/I NHLR/IP RADEX 56290 FARRAHSOFI FARRAHSOFI FOOT 2 W W [facility]PLE[facility]IMUM 3 MEDICAL MEDICAL VIEWS IAADIADOO 01344 ENEDELIA MCDANIELS G 2 STREPTOCO CCUS GROUP A Encounters Encounter Start End Date Code Location Performer Type Date [facility] OUT[facility] 7 7 PSC T VISIT 15 MINUTES EMERGENCY 42895 [facility] EM[facility]ENC[facility] T VISIT PHYS MODERATE SEVERITY OFFICE 59417 [facility] OUTPATIEN 7 7 PSC T VISIT 15 MINUTES [facility] 49488 [facility] OUTPATI[facility] 7 7 W GENERAL T NEW 45 SURGERY MINUTES [facility] 7 7 W [facility]24 [facility] TY OUTPATIEN 7 7 PSC T VISIT 15 MINUTES OFFICE 41622 NANCY GOLD OUTPATIEN 6 6 FAMILY DEYVI T NEW 20 HEALTH MINUTES [facility] - 6 6 W OUTPATIEN [facility] T MEDICAL OFFICE 47968 [facility] OUTPATIEN 6 6 PSC GAR T VISIT 15 MINUTES OFFICE 46680 ALLERGY, DOUGLAS OUTPATIEN 5 5 ASTHMA & ROS T VISIT IMMUNOLOG 15 Y MINUTES OFFICE 62092 ALLERGY, DOUGLAS OUTPATIEN 5 5 ASTHMA & ROS T VISIT IMMUNOLOG 25 Y MINUTES OFFICE 47775 [facility] M[facility] OUTPATIEN 5 5 PSC GAR T VISIT 15 MINUTES OFFICE 09251 [facility] TY OUTPATIEN 5 5 PSC ROBE T VISIT 15 MINUTES EMERGENCY 31834 [facility] 5 5 [facility] DEPARTMEN EMERGENCY T VISIT PHYS MODERATE SEVERITY OFFICE 41262 [facility] MCDANIEL[facility] OUTPATIEN 5 5 PSC GAR T VISIT 15 MINUTES [facility] - 5 5 W [facility] MEDICAL OFF[facility] 79372 K[facility]ARE MCDANIELS OUTPATIEN 5 5 PSC GAR T VISIT 25 MINUTES OFFICE 90539 [facility] OUTPATIEN 4 4 PRIMARY HODAN T VISIT CARE 15 CENTER MINUTES OFFICE 17792 [facility] MCDANIELS OUTPATIEN 4 4 PSC GAR T VISIT 25 MINUTES [facility]OSPITAL [facility] - 3 3 W INPATIENT REGIONAL MEDICAL OFFICE 40738 [facility]AC[facility] OUTPATIEN 3 3 T VISIT 15 MINUTES OFFICE 62768 TRACIE [place] OUTPATIEN 3 3 T VISIT 15 MINUTES OFFICE 33876 MORENA OUTPATIEN 3 3 GWENDOLYN T VISIT 15 MINUTES [facility] 65750 LIVAS SAMMI LIVAS SAMMI OUTPATIEN 3 3 T VISIT 15 MINUTES OFFICE 88566 [facility] OUTPATIEN 3 3 WALTERS T VISIT 15 MINUTES HOSPITAL FARRAHVIE - 3 3 W OUTPATIEN REGIONAL T MEDICAL OFFICE 95472 TRACIE [place] OUTPATIEN 3 3 T VISIT 15 MINUTES OFFICE 78226 TRACIE [place] OUTPATIEN 3 3 T VISIT 15 MINUTES OFFICE 30185 MORENA OUTPATIEN 3 3 GWENDOLYN T VISIT 15 MINUTES OFFICE 49942 BRIA OUTPATIEN 3 3 DON T VISIT 15 MINUTES OFFICE 83373 [facility] OUTPATIEN 2 2 WALTERS T VISIT 15 MINUTES EMERGENCY 18439 [facility] 2 2 W [facility] T VISIT MEDICAL MODERATE SEVERITY EMERGENCY 64418 SAGE STEPHEN 2 2 EMERGENCY [facility] SERVICES T VISIT HIGH/URGE NT SEVERITY [facility] 2 2 W [facility] MEDICAL OFF[facility] 36376 [facility] OUTPATIEN 2 2 [facility] T VISIT 15 MINUTES OFFICE 43464 BRIA OUTPATIEN 2 2 DON T VISIT 25 MINUTES [facility] 2 2 [facility] 06294 ENEDELIA Seymour OUTPATIEN 2 2 T VISIT 15 MINUTES INITIAL 61913 BRIA PREVENTIV 2 2 DON E MEDICINE NEW PT AGE 12-17 YR [facility] 63349 [facility] 2 2 W [facility] T VISIT MEDICAL MODERATE SEVERITY OFFICE 28367 LIVAS SAMMI LIVAS SAMMI OUTPATIEN 2 2 T VISIT 15 MINUTES OFFICE 75222 ENEDELAI Seymour OUTPATIEN 2 2 T VISIT 15 MINUTES OFFICE 37603 ENEDELIA Seymour OUTPATIEN 2 2 T VISIT 15 MINUTES OFFICE 25198 LIVAS SAMMI LIVAS SAMMI CONSULTAT 2 2 ION NEW/ESTAB PATIENT 60 MIN OFFICE 30609 ENEDELIA Seymour OUTPATIEN 2 2 T VISIT 15 MINUTES OFFICE 85312 ENEDELIA Seymour OUTPATIEN 2 2 T VISIT 15 MINUTES OFFICE 82199 ENEDELIA Seymour OUTPATIEN 2 2 T VISIT 15 MINUTES [facility] - 2 2 W OUTPATIEN REGIONAL T MEDICAL OFFICE 11536 ENEDELIA Seymour OUTPATIEN 2 2 T VISIT 15 MINUTES
--- OUTSIDE RECORDS SUMMARY | 2017-07-17 21:34 | External Medical Summary Rpt | CCD ---
Author Author , MARY Organization MARY Address Unknown Phone [email or web address] Care Team Providers Care Manager In Training Name Role Phone ALLERGY, ASTHMA & Unavailable [...] KID CARE P[facility], KID Unavailable Unavailable [facility] LIVAS SAMMI, LIVAS SAMMI Unavailable Unavailable LIVAS SAMMI, LIVAS SAMMI Unavailable Unavailable [facility], Unavailable Unavailable [facility] Un[facility]AT, [facility] Unavailable Unavailable SURGERY, [facility] Unavailable Unavailable MEDICAL, [facility] Unavailable Unavailable MEDICAL, [facility] Un[facility] Unavailable [facility] ALLA NATH Unavailable Unavailable DEYVI OLZESKI DEYVI, OLZESKI Unavailable Unavailable DEYVI ZUNIGA, ZUNIGA Unavailable Unavailable DOUGLAS ROS, DOUGLAS Unavailable Unavailable [...] Diagnosis DOS Provider Status E162 HYPOGLYCEMI 05-17-2017 [facility]ICAL K047 PERIAPICAL 05-17-2017 [facility] ABSCESS N EMERGENCY WITHOUT PHYS SINUS L239 ALLERGIC 05-17-2017 [facility] CONTACT [facility] DERMATITIS UNSPECIFIED CAUSE Z789 OTHER 05-17-2017 [facility] SPECIFIED PSC HEALTH STATUS Z880 ALLERGY 05-17-2017 [facility] STATUS TO REGIONAL [place] MEDICAL H5213 MYOPIA 03-22-2017 [facility] Q00395 UNSPECIFIED 12-21-2016 [facility] ASTHMA REGIONAL UNCOMPLICAT MEDICAL ED K219 GASTRO-ESOP 12-21-2016 [facility] REFLUX REGIONAL DISEASE MEDICAL WITHOUT ESOPHAGITIS K811 CHRONIC 12-21-2016 [facility] CHOLECYSTIT GENERAL IS SURGERY K828 OTHER 12-21-2016 [facility] SPECIFIED REGIONAL DISEASES OF MEDICAL GALLBLADDER Z6829 BODY MASS 12-21-2016 [facility] INDEX BMI REGIONAL 29.0-29.9 MEDICAL ADULT Z720 TOBACCO USE 12-21-2016 [facility]AL MEDICAL R1084 GENERALIZED 11-29-2016 [facility] ABDOMINAL REGIONAL PAIN MEDICAL R110 NAUSEA 11-29-2016 [facility] R109 UNSPECIFIED 11-20-2016 [facility] ABD[facility]INAL [facility] PAIN ASSOCIAT R112 NAUSEA WITH 11-20-2016 [facility] UNSPECIFIED ASSOCIAT J309 ALLERGIC 08-06-2016 ALLERGY, RHINITIS ASTHMA & UNSPECIFIED IMMUNOLOGY P47598 ENCOUNTER 07-16-2016 [facility] E CONTRACEPT DEVICE Z309 ENCOUNTER 07-16-2016 [facility] VE MANAGEMENT UNS N86409 PAIN IN 06-29-2016 [facility] LEFT ARM REGIONAL MEDICAL Z3040 ENCOUNTER 06-29-2016 [facility] FOR [facility]Y SURVEILLANC ASSOCIAT E CONTRACEPTI VES UNS B86 SCABIES 06-01-2016 [facility] J3089 OTHER 06-01-2016 [facility] ALLERGIC PSC RHINITIS B00529 OTHER 06-01-2016 [facility] ASTHMA PSC L2389 ALLERGIC 06-01-2016 [facility] CONTACT [facility]SC DERMATITIS DUE TO OTHER AGENTS N898 OTHER 04-18-2016 MEDICAL SPECIFIED DIAGNOSTIC NONINFLAMMA [facility] TORY DISORDERS VAGINA L91725 ENCOUNTER 04-18-2016 MEDICAL [place] DETECTIVE EXAM DIAGNOSTIC GENERAL RTN [facility] W/O [...] EMERGENCY OF UPPER PHYS ARM AND FOREARM 31545 UNS 01-27-2015 [facility] GASTRITIS&G PSC ASTRODUODIT IS W/O MENTION HEMORR 6260 ABSENCE OF 01-27-2015 [facility] MENSTRUATIO PSC N 4619 ACUTE 01-11-2015 [facility] SINUSITIS, PSC UNSPECIFIED V2540 UNSPECIFIED 07-28-2014 [facility] VE SURVEILLANC E 54550 ASTHMA 06-24-2014 [facility] UNSPECIFIED PSC WITH EXACERBATIO N V255 INSERTION 04-20-2013 LAWRENCE DIXON OF IMPLANTABLE SUBDERMAL CONTRACEPTI VE V242 ROUTINE 04-03-2013 HOGGE ROOPA FOLLOW-UP V258 OTHER 04-03-2013 HOGGE ROOPA SPECIFIED CONTRACEPTI VE MANAGEMENT 17118 POOR 02-26-2013 [facility] GROWTH MGMT MOTH ANTPRTM COND/COMP V270 OUTCOME OF 02-26-2013 [facility] DELIVERY SINGLE LIVEBORN 62123 ASTHMA, 02-24-2013 [facility] UNSPECIFIED REGIONAL , MEDICAL UNSPECIFIED STATUS 650 NORMAL 02-24-2013 [facility] KENNY DELIVERY 33526 POOR 02-24-2013 [facility] GROWTH REGIONAL AFFECT MEDICAL MANAGEMENT MOTH DELIV 46285 OTH 02-24-2013 [facility] [place] INC CONDS AFFECT MANAGEMENT MOTH DELIV 12019 ABN FETL 02-24-2013 [facility] HRT REGIONAL RATE/RHYTHM MEDICAL DELIV W/WO ANTPRTM COND 00340 HIGH 02-24-2013 [facility] VAGINAL REGIONAL LACERATION MEDICAL WITH DELIVERY 58532 UTERINE 02-20-2013 [facility] SIZE DATE DISCREPANCY ANTPRTM COND/COMPL V220 SUPERVISION 02-20-2013 [facility] OF NORMAL FIRST V2383 SUPERVISION 02-20-2013 [facility] HIGH-RISK PG YOUNG PRIMIGRAVID A V284 02-20-2013 [facility] SCR GROWTH RETARDATION USING US 6259 UNSPEC 02-06-2013 [facility] W/FEMALE GENITAL ORGANS V286 SCREENING 02-06-2013 MORENA GWENDOLYN OF STREPTOCOCC US B 4779 ALLERGIC 02-03-2013 LIVAS SAMMI RHINITIS CAUSE UNSPECIFIED 92783 OTHER 02-03-2013 LIVAS SAMMI DISEASES OF NASAL CAVITY AND SINUSES V061 NEED PROPH 01-22-2013 SHOWER WALTERS VAC W/COMB DIPHTH-TETA NUS-PERTUSS VAC 0419 BACTERIAL 01-21-2013 ALLA CARNES INFECTION UNSPECIFIED CCE & UNS SITE 78385 UNSPECIFIED 01-21-2013 ALLA CARNES VAGINITIS AND VULVOVAGINI TIS 40764 UNSPECIFIED 01-21-2013 ALLA CARNES ABNORMALITY OF LABOR ANTEPARTUM V6545 COUNSELING 01-08-2013 ALLA CARNES OTHER SEXUALLY TRANSMITTED DISEASES V2889 OTHER 12-12-2012 [facility] SPECIFIED SCREENING V2881 ENCOUNTER 10-17-2012 [facility] FOR ANATOMIC SURVEY 3829 UNSPECIFIED 09-07-2012 [facility] OTITIS REGIONAL MEDIA MEDICAL 6268 OTH D/O 08-12-2012 [facility] MENSTRUATIO N&OTH ABN BLEED FE GNT TRACT V0481 NEED 08-12-2012 [facility] PROPHYLACTI C VACCINATION &INOCULATIO N FLU V7242 08-12-2012 [facility] EXAMINATION OR TEST POSITIVE RESULT 33550 WHEEZING 07-15-2012 [facility] 7862 COUGH 10-16-2012 [facility] 490 BRONCHITIS 07-08-2012 MCDANIELS G NOT SPECIFIED ACUTE OR CHRONIC V7231 ROUTINE 05-05-2012 [facility] GYNECOLOGIC AL EXAMINATION V7388 SPECIAL SCR 05-05-2012 [facility] RINKU EXAMINATION OTH SPEC CHLAMYDIAL DZ V745 SCREENING 05-05-2012 [facility] EXAMINATION FOR VENEREAL DISEASE 920 CONTUSION 04-28-2012 [facility] KER OF FACE SCALP AND NECK EXCEPT EYE E9179 OTHER 04-28-2012 [facility] STRIKING AGAINST W/WO SUBSEQUENT FALL 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 21 00 WA [...] Procedure DOS Code Location Performer Comment COMPREHEN 90480 [facility] ME[facility] SIVE 7 W W METABOLIC [facility] [place] [place] [address] [facility] ME[facility] INSULIN 7 W W TOTAL [facility] MEDICAL MEDICAL COLLECTIO 63132 ME[facility] MEADOW[facility]IE N VENOUS 7 W W BLOOD [facility] VENIPUNCT [facility] MEDICAL URE HEMOGLOBI 22595 ME[facility] MEADOWVIE N 7 W W GLYCOSYLA [facility] RADHA A1C MEDICAL MEDICAL FRAMES V2020 LENIN ZUNIGA PURCHASES 7 OPTICAL SPHERE V2101 LENIN ZUNIGA SINGLE 7 OPTICAL VISION +/- 4.12 +/- 7.00D PER LENS SCRATCH V2760 LENIN ZUNIGA RESISTANT 7 OPTICAL COATING PER LENS LENS V2784 LENIN ZUNIGA POLYCARBO 7 OPTICAL MATT OR EQUAL ANY INDEX PER LENS FITTING 06666 LENIN ZUNIGA SPECTACLE 7 OPTICAL S XCPT APHAKIA MONOFOCAL OPHTH 74189 [facility] MEDICAL 7 XM&EVAL COMPRE NEW PT 1/> VST DETERMINA 07861 [facility] TION 7 REFRACTIV E STATE ANES 85796 [facility] INTRAPERI 7 LTH TONEAL ANESTHESI UPPER A PSC ABDOMEN W/LAPS NOS INJECTION J2250 [facility] ME[facility] 7 W W [place] REGIONAL REGIONAL HCL PER MEDICAL MEDICAL 1 MG CHOLANGIO 47833 [facility] ANYA GRAPHY&/P 7 ANCREATOG [facility]IOLOGY [facility] NTRAOP RS&I LAPS SURG 67456 [facility] ME[facility] 7 W W CHOLECYST REGIONAL REGIONAL ECTOMY MEDICAL MEDICAL W/CHOLANG IOGRAPHY LEVEL III 48805 [facility] ME[facility] SURG 7 W W PATHOLOGY REGIONAL REGIONAL MEDICAL MEDICAL GROSS&AGUS ROSCOPIC EXAM RAD EXP G9500 [facility] INDICES/E 7 XP TM & RADIOLOGY NUMB [...] UP TO MEDICAL MEDICAL 1000 CC URINE 75603 [facility] MEADOW[facility] 7 W W TEST REGIONAL REGIONAL VISUAL MEDICAL MEDICAL COLOR CMPRSN METHS HEPATOBIL 00814 [facility] SYST 7 W W IMAG INC REGIONAL REGIONAL GB MEDICAL MEDICAL W/PHARMA INTERVENJ INJECTION J2805 [facility] ME[facility]OW[facility]IE 7 W W SINCALIDE REGIONAL REGIONAL 5 MEDICAL MEDICAL MICROGRAM S TECHNETIU A9537 SHANELL Gomez TC-99M 7 W W [facility] REGIONAL REGIONAL N DX UP MEDICAL MEDICAL TO 15 MCI FINAL G9551 [facility] REPR ABD 7 IMAG STS RADIOLOGY W/O ASSOCI[place]: [place] [address] [facility] ABDOMINAL 7 REAL RADIOLOGY TIME ASSOCIAT W/IMAGE LIMITED PREPJ& 05877 ALLERGY, LIVAS SAMMI ALLERGEN 6 ASTHMA & IMMUNOTHE IMMUNOLOG RAPY Y 1/CUSTOMER ENGAGEMENT MANAGER ANTIGEN REMOVAL 44087 [place] [place] OLZESKI NON-BIODE 6 [facility] DELIVERY IMPLANT RADEX 30585 SHANELL REECE HUMERUS 6 W W MINIMUM 2 REGIONAL REGIONAL VIEWS MEDICAL MEDICAL PREPJ& 46879 ALLERGY, LIVAS SAMMI ALLERGEN 6 ASTHMA & IMMUNOTHE IMMUNOLOG RAPY Y 1/CUSTOMER ENGAGEMENT MANAGER ANTIGEN IADNA 77312 MEDICAL MEDICAL CHLAMYDIA 6 DIAGNOSTI DIAGNOSTI C [facility] C [facility] TRACHOMAT IS AMPLIFIED PROBE TQ IADNA 77785 MEDICAL MEDICAL NILDA 6 DIAGNOSTI DIAGNOSTI SPECIES C [facility] AMPLIFIED PROBE TQ IADNA 94915 MEDICAL MEDICAL GARDNEREL 6 DIAGNOSTI DIAGNOSTI LA C [facility] C [facility] VAGINALIS AMPLIFIED PROBE TQ IADNA 95500 MEDICAL MEDICAL NEISSERIA 6 DIAGNOSTI DIAGNOSTI C [facility] GONORRHOE AE AMPLIFIED PROBE TQ IADNA 07708 MEDICAL MEDICAL TRICHOMON 6 DIAGNOSTI DIAGNOSTI C [facility] VAGINALIS AMPLIFIED PROBE TECH IADNA NOS 99898 MEDICAL MEDICAL 6 DIAGNOSTI DIAGNOSTI AMPLIFIED C [facility] C [facility] PROBE TQ EACH ORGANISM PREPJ& 39897 ALLERGY, LIVAS SAMMI ALLERGEN 6 ASTHMA & IMMUNOTHE IMMUNOLOG RAPY Y 1/CUSTOMER ENGAGEMENT MANAGER ANTIGEN PREPJ& 01848 ALLERGY, LIVAS SAMMI ALLERGEN 6 ASTHMA & IMMUNOTHE IMMUNOLOG RAPY Y 1/CUSTOMER ENGAGEMENT MANAGER ANTIGEN PREPJ& 63264 ALLERGY, LIVAS ASMMI ALLERGEN 6 ASTHMA & IMMUNOTHE IMMUNOLOG RAPY Y 1/CUSTOMER ENGAGEMENT MANAGER ANTIGEN PREPJ& 95915 ALLERGY, LIVAS SAMMI ALLERGEN 5 ASTHMA & IMMUNOTHE IMMUNOLOG RAPY Y 1/CUSTOMER ENGAGEMENT MANAGER ANTIGEN SPMTRY 68413 ALLERGY, DOUGLAS W/VC 5 ASTHMA & ROS EXPIRATOR IMMUNOLOG Y ISIDRA Y W/WO MXML VOL VNTJ PROF SVCS 10904 KID CARE ENEDELIA ALLG 5 PSC GAR IMMNTX X W/PRV ALLGIC XTRCS 1 NJX PREPJ& 09756 ALLERGY, LIVAS SAMMI ALLERGEN 5 ASTHMA & IMMUNOTHE IMMUNOLOG RAPY Y 1/CUSTOMER ENGAGEMENT MANAGER ANTIGEN PERCUTANE 02108 ALLERGY, DOUGLAS OUS TESTS 5 ASTHMA & ROS IMMUNOLOG W/ALLERGE Y DARYN EXTRACTS SCRATCH V2760 MERARY REAGAN RESISTANT 5 ADA ADA COATING PER LENS SPHERE V2101 MERARY REAGAN SINGLE 5 ADA ADA VISION +/- 4.12 +/- 7.00D PER LENS FRAMES V2020 MERARY REAGAN PURCHASES 5 ADA ADA FITTING 22657 MER[facility] REAGAN SPECTACLE 5 ADA ADA S XCPT APHAKIA MONOFOCAL LENS V2784 MERARY REAGAN POLYCARBO 5 ADA ADA MATT OR EQUAL ANY INDEX PER LENS OPHTH 75091 [facility] 5 CHRISS CHRISS XM&EVAL COMPRHNSV ESTAB PT 1/> INCISION [address] [facility] & 5 [place] SHIREEN DRAINAGE EMERGENCY ABSCESS PHYS COMPLICAT ED/MULTIP LE URINE 45460 K[facility] CARE ENEDELIA 5 PSC GAR TEST V[place] [address] SHANELL REECE HPYLORI 5 W W STOOL [facility] MEDICAL FRAMES V2020 MERARY REAGAN PURCHASES 4 ADA ADA RPR&REFIT 89245 MERARY REAGAN G 4 ADA ADA SPECTACLE S EXCEPT APHAKIA FITTING 22941 LENIN REAGAN SPECTACLE 4 OPTICAL ADA S XCPT APHAKIA MONOFOCAL FRAMES V2020 LENIN REAGAN PURCHASES 4 OPTICAL ADA SPHERE V2101 LENIN REAGAN SINGLE 4 OPTICAL ADA VISION +/- 4.12 +/- 7.00D PER LENS SCRATCH V2760 LENIN REAGAN RESISTANT 4 OPTICAL ADA COATING PER LENS LENS V2784 LENIN REAGAN POLYCARBO 4 OPTICAL ADA MATT OR EQUAL ANY INDEX PER LENS OPHTH 25238 AWOSIKA AWOSIKA MEDICAL 4 CHRISS CHRISS XM&EVAL COMPRHNSV ESTAB PT 1/> INSJ 44029 LAWRENCE DIXON LAWRENCE DIXON NON-BIODE 3 GRADABLE DRUG DELIVERY IMPLANT URINE 29507 LAWRENCE DIXON LAWRENCE DIXON 3 TEST VISUAL COLOR CMPRSN METHS ETONOGEST J7307 LAWRENCE DIXON LAWRENCE DIXON REL 3 CNTRACPT IMPL SYS INCL IMPL & SPL POSTPARTU 77714 JESSE Gomez C[facility] 34115 TRACIE HILLY [facility] DISCHARGE 3 DAY MANAGEMEN T 30 MIN/< SBSQ 87535 [facility] HODGES OT[facility] 3 CARE/DAY 15 MINUTES VAGINAL 20940 [facility] DELIVERY 3 ONLY LEVEL V 55648 [facility] [place] SURG 3 [place] INC HEN PATHOLOGY GROSS&AGUS ROSCOPIC EXAM NEURAXIAL 79799 [facility] K[facility]NY HURST KENNY LABOR 3 ANALG/ANE S PLND VAGINAL DELIVERY INDUCTION 7301 MEAD[facility]IE MEADOW[facility]IE LABOR 3 W W ARTIFICIA REGIONAL REGIONAL L RUPTURE MEDICAL MEDICAL MEMBRANES OTHER 7359 MEADOW[facility]IE MEADOWVIE MANUALLY 3 W W ASSISTED REGIONAL REGIONAL DELIVERY MEDICAL MEDICAL 15681 [facility] NONSTRESS 3 TEST URNLS DIP 45065 [facility] 3 STICK/TAB LET RGNT NON-AUTO W/O MICRSCP US PREG 55555 [facility] UTERUS 3 REAL TIME F/U TRNSABDL PER FETUS URNLS DIP 60476 [facility] 3 STICK/TAB LET RGNT NON-AUTO W/O MICRSCP URNLS DIP 65374 MORENA VERASAN 3 GWENDOLYN GWENDOLYN STICK/TAB LET RGNT NON-AUTO W/O MICRSCP IADNA 96493 [facility] NEISSERIA 3 DIAGNOSTI DIAGNOSTI CS CS GONORRHOE AE AMPLIFIED PROBE TQ CUL 82887 GENESISWSOFI HURTADOWVIE PRSMPTV 3 W W [facility] MEDICAL MEDICAL SCRN W/COLONY ESTIMJ IADNA 52408 [facility] CHLAMYDIA 3 DIAGNOSTI DIAGNOSTI CS CS TRACHOMAT IS AMPLIFIED PROBE TQ NITRIC 00636 LIVAS SAMMI LIVAS SAMMI OXIDE 3 GAS DETERMINA TION SPMTRY 76315 LIVAS SAMMI LIVAS SAMMI W/VC 3 EXPIRATOR Y ISIDRA W/WO MXML VOL VNTJ URNLS DIP 52593 SHOWER SHOWER 3 WALTERS WALTERS STICK/TAB LET RGNT NON-AUTO W/O MICRSCP EVAL C/V 75192 [facility] MEAD[facility]IE AMNIOTIC 3 W W FLUID [facility] PROTEIN MEDICAL MEDICAL QUAL EA SPECIMEN URNLS DIP 43348 [facility] MEADOW[facility]IE 3 W W STICK/TAB [facility] LET MEDICAL MEDICAL REAGENT AUTO MICROSCOP Y 41606 [facility] ME[facility] NONSTRESS 3 W W TEST [facility] MEDICAL MEDICAL SMR PRIM 36918 [facility] MEAD[facility] SRC WET 3 W W [facility] NFCT [facility] G0378 ME[facility]IE MEADOWVIE OBSERVATI 3 W W ON [facility] SERVICE MEDICAL MEDICAL PER HOUR IADNA 75497 MEDICAL MEDICAL CHLAMYDIA 3 DIAGNOSTI DIAGNOSTI [facility] C [facility] TRACHOMAT IS AMPLIFIED PROBE TQ IADNA 02097 MEDICAL MEDICAL GARDNEREL 3 DIAGNOSTI DIAGNOSTI LA C [facility] VAGINALIS AMPLIFIED PROBE TQ IADNA NOS 66239 MEDICAL MEDICAL 3 DIAGNOSTI DIAGNOSTI AMPLIFIED C [facility] PROBE TQ EACH ORGANISM IADNA 04343 MEDICAL MEDICAL NEISSERIA 3 DIAGNOSTI DIAGNOSTI C [facility] C [facility] GONORRHOE AE AMPLIFIED PROBE TQ PREPJ& 29822 LIVAS SAMMI LIVAS SAMMI ALLERGEN 3 IMMUNOTHE RAPY 1/CUSTOMER ENGAGEMENT MANAGER ANTIGEN URNLS DIP 36030 [facility] 3 STICK/TAB LET RGNT NON-AUTO W/O MICRSCP URNLS DIP 00859 [facility] TR[facility]IE [facility] 3 STICK/TAB LET RGNT NON-AUTO W/O MICRSCP US PREG 17250 [facility] UTERUS 3 REAL TIME F/U TRNSABDL PER FETUS GLUCOSE 59740 [facility] TOLERANCE 3 DIAGNOSTI DIAGNOSTI TEST GTT CS CS 3 SPECIMENS URNLS DIP 51068 MORENA MORENA 3 GWENDOLYN GWENDOLYN STICK/TAB LET RGNT NON-AUTO W/O MICRSCP PREPJ& 17243 LIVAS SAMMI LIVAS SAMMI ALLERGEN 3 IMMUNOTHE RAPY 1/CUSTOMER ENGAGEMENT MANAGER ANTIGEN URNLS DIP 04108 BRIA FRASER 3 DON DON STICK/TAB LET RGNT NON-AUTO W/O MICRSCP US PREG 33695 BRIA BRIA UTERUS 3 DON DON W/DETAIL MARQUEZ 1ST GESTATION URNLS DIP 54999 SHOWER SHOWER 2 WALTERS WALTERS STICK/TAB LET RGNT NON-AUTO W/O MICRSCP IADNA 53296 MEDICAL MEDICAL CHLAMYDIA 2 DIAGNOSTI DIAGNOSTI [facility] TRACHOMAT IS AMPLIFIED PROBE TQ IADNA 92568 MEDICAL MEDICAL NEISSERIA 2 DIAGNOSTI DIAGNOSTI [facility] GONORRHOE AE AMPLIFIED PROBE TQ PRESSURIZ 56954 SHANELL REECE ED/NONPRE 2 W W SSURIZED [facility] INHALATIO MEDICAL MEDICAL N TREATMENT COLLECTIO 92848 SHOWER SHOWER N VENOUS 2 [place] [address] SHOWER SHOWER 2 WALTERS WALTERS UTERUS 14 WK TRANSABDL GESTAT PREPJ& 11174 LIVAS SAMMI LIVAS SAMMI ALLERGEN 2 IMMUNOTHE RAPY 1/CUSTOMER ENGAGEMENT MANAGER ANTIGEN URINE 18616 BRIA BRIA 2 DON DON TEST VISUAL COLOR CMPRSN METHS PROF SVCS 90529 MCDANIELS G ENEDELIA G ALLG 2 IMMNTX X W/PRV ALLGIC XTRCS 1 NJX RADIOLOGI 66375 SHANELL REECE C EXAM 2 W W CHEST 2 REGIONAL REGIONAL [facility] FRONTAL&L ATERAL PROF [facility] 64571 ENEDELIA G MCDANIELS G ALLG 2 IMMNTX X W/PRV ALLGIC XTRCS 1 NJX PROF SVCS 83093 MCDANIELS G MCDANIELS G ALLG 2 IMMNTX X W/PRV ALLGIC XTRCS 1 NJX PROF [facility] 37686 ENEDELIA G ENEDELIA G ALLG 2 IMMNTX X W/PRV ALLGIC XTRCS NJXS PREPJ& 86226 LIVAS SAMMI LIVAS SAMMI ALLERGEN 2 IMMUNOTHE RAPY 1/CUSTOMER ENGAGEMENT MANAGER ANTIGEN PROF [facility] 01796 ENEDELIA MCDANIELS G ALLG 2 IMMNTX X W/PRV ALLGIC XTRCS 1 NJX PROF [facility] 38984 ENEDELIA G MCDANIELS G ALLG 2 IMMNTX X W/PRV ALLGIC XTRCS 1 NJX PROF [facility] 47101 ENEDELIA MCDANIELS G ALLG 2 IMMNTX X W/PRV ALLGIC XTRCS 1 NJX PROF [facility] 63083 ENEDELIA MCDANIELS G ALLG 2 IMMNTX X W/PRV [place]GIC XTRCS 1 [place] [address] ENEDELIA MCDANIELS G ALLG 2 IMMNTX X W/PRV ALLGIC XTRCS 1 NJX IADNA 68309 [facility] NEISSERIA 2 DIAGNOSTI DIAGNOSTI CS CS GONORRHOE AE AMPLIFIED PROBE TQ GONADOTRO 70699 [facility] PIN 2 DIAGNOSTI DIAGNOSTI CHORIONIC CS CS QUANTITAT ILAN URINE 85595 BRIA BRIA 2 DON DON TEST VISUAL COLOR CMPRSN METHS IADNA 71224 [facility] QUEST CHLAMYDIA 2 DIAGNOSTI DIAGNOSTI CS CS TRACHOMAT [place] [address] ENEDELIA MCDANIELS G ALLG 2 IMMNTX X W/PRV ALLGIC XTRCS 1 NJX RADEX 18562 [facility] NASAL 2 EIDER DANETTE BONES RADIOLOGY COMPLETE ASSOCIAT MINIMUM 3 VIEWS PROF [facility] 73465 ENEDELIA Seymour ALLG 2 IMMNTX X W/PRV ALLGIC XTRCS 1 NJX PROF [facility] 64142 ENEDELIA Seymour ALLG 2 IMMNTX X W/PRV ALLGIC XTRCS 1 NJX PREPJ& 09883 LIVAS SAMMI LIVAS SAMMI ALLERGEN 2 IMMUNOTHE RAPY 1/CUSTOMER ENGAGEMENT MANAGER ANTIGEN PROF [facility] 46602 ENEDELIA Seymour ALLG 2 IMMNTX X W/PRV ALLGIC XTRCS 1 NJX DETERMINA 66365 AWOSIKA AWOSIKA TION 2 CHRISS CHRISS REFRACTIV E STATE OPHTH 68966 AWOSIKA AWOSIKA MEDICAL 2 CHRISS CHRISS XM&EVAL COMPRE NEW PT 1/> VST NITRIC 95740 LIVAS SAMMI LIVAS SAMMI OXIDE 2 GAS DETERMINA TION SPMTRY 10978 LIVAS SAMMI LIVAS SAMMI W/VC 2 EXPIRATOR Y ISIDRA W/WO MXML VOL VNTJ PROF [facility] 33934 ENEDELIA MCDANIELS G ALLG 2 IMMNTX X W/PRV ALLGIC XTRCS 1 NJX PROF [facility] 63777 ENEDELIA MCDANIELS G ALLG 2 IMMNTX X W/PRV ALLGIC XTRCS 1 NJX PROF [facility] 30098 ENEDELIA Seymour ALLG 2 IMMNTX X W/PRV ALLGIC XTRCS 1 NJX PROF [facility] 23484 ENEDELIA MCDANIELS G ALLG 2 IMMNTX X W/PRV ALLGIC XTRCS 1 NJX PREPJ& 67041 LIVAS SAMMI LIVAS SAMMI ALLERGEN 2 IMMUNOTHE RAPY 1/CUSTOMER ENGAGEMENT MANAGER ANTIGEN NITRIC 15050 LIVAS SAMMI LIVAS SAMMI OXIDE 2 GAS DETERMINA TION DEMO&/MEI 18014 LIVAS SAMMI LIVAS SAMMI L OF PT 2 UTILIZ AERSL GEN/NEB/I NHLR/IP BRNCDILAT 81962 LIVAS SAMMI LIVAS SAMMI RSPSE 2 SPMTRY PRE&POST- BRNCDILAT ADMN PERCUTANE 56367 LIVAS SAMMI LIVAS SAMMI OUS TESTS 2 W/ALLERGE DARYN EXTRACTS DEMO&/MEI 46044 ENEDELIA MCDANIELS G L OF PT 2 UTILIZ AERSL GEN/NEB/I NHLR/IP RADEX 08265 FARRAHSOFI FARRAHSOFI FOOT 2 W W [facility] 3 MEDICAL MEDICAL VIEWS IAADIADOO [id number] ENEDLEIA MCDANIELS G 2 STREPTOCO CCUS GROUP A Encounters Encounter Start End Date Code Location Performer Type Date [facility] OUTPATIEN 7 7 PSC T VISIT 15 MINUTES EMERGENCY 73024 [facility] 7 7 [facility] EMERGENCY T VISIT PHYS MODERATE SEVERITY OFFICE 86506 [facility] M[facility]ANI[facility] OUTPATIEN 7 7 PSC T VISIT 15 MINUTES [facility]70 [facility] 7 7 W GENERAL T NEW 45 SURGERY MINUTES [facility] [address] [facility] TY OUTPATIEN 7 7 PSC T VISIT 15 MINUTES OFFICE 75093 NANCY GOLD OUTPATIEN 6 6 FAMILY DEYVI T NEW 20 HEALTH MINUTES [facility] [address] [facility] T MEDICAL OFFICE 60378 [facility] CARE MCDANIELS OUTPATIEN 6 6 PSC GAR T VISIT 15 MINUTES OFFICE 26373 ALLERGY, DOUGLAS OUTPATIEN 5 5 ASTHMA & ROS T VISIT IMMUNOLOG 15 Y MINUTES OFFICE 65814 ALLERGY, DOUGLAS OUTPATIEN 5 5 ASTHMA & ROS T VISIT IMMUNOLOG 25 Y MINUTES OFFICE 16449 [facility] MCDANI[facility]S OUTPATIEN 5 5 PSC GAR T VISIT 15 MINUTES OFFICE 11209 [facility]ID CARE TY OUTPATIEN 5 5 PSC ROBE T VISIT 15 MINUTES EMERGENCY [address] [facility] 5 5 [place] [facility] EMERGENCY T VISIT PHYS MODERATE SEVERITY OFFICE 11071 [facility] C[facility] MCDANIELS OUTPATIEN 5 5 PSC GAR T VISIT 15 MINUTES [facility] - 5 5 [facility] MEDICAL OFFICE 87553 KID CARE MCDANIELS OUTPATIEN 5 5 PSC GAR T VISIT 25 MINUTES OFFICE 76821 [facility] OUTPATIEN 4 4 PRIMARY HODAN T VISIT CARE 15 CENTER MINUTES OFFICE 39486 KID CARE MCDANIELS OUTPATIEN 4 4 PSC GAR T VISIT 25 MINUTES HOSPITAL [facility] - 3 3 W INPATIENT REGIONAL MEDICAL OFFICE 40118 [facility]AC[facility] OUTPATIEN 3 3 T VISIT 15 MINUTES OFFICE 03981 TRACIE [place] OUTPATIEN 3 3 T VISIT 15 MINUTES OFFICE 27960 MORENA OUTPATIEN 3 3 GWENDOLYN T VISIT 15 MINUTES [facility]10 LIVAS SAMMI LIVAS SAMMI OUTPATIEN 3 3 T VISIT 15 MINUTES OFFICE 07948 [facility] OUTPATIEN 3 3 WALTER[facility] T VISIT 15 MINUTES HOSPITAL FARRAHVIE - 3 3 W OUTPATIEN REGIONAL T MEDICAL OFFICE 60265 TRACIE [place] OUTPATIEN 3 3 T VISIT 15 MINUTES OFFICE 64422 TRACIE [place] OUTPATIEN 3 3 T VISIT 15 MINUTES OFFICE 64136 MORENA OUTPATIEN 3 3 GWENDOLYN T VISIT 15 MINUTES OFFICE 44106 BRIA OUTPATIEN 3 3 DON T VISIT 15 MINUTES OFFICE 93604 [facility] OUTPATIEN 2 2 [facility] T VISIT 15 MINUTES EMERGENCY 85831 [facility] [address] [facility] T VISIT MEDICAL MODERATE SEVERITY EMERGENCY 17957 SAGE STEPHEN 2 2 EMERGENCY [facility] SERVICES T VISIT HIGH/URGE NT SEVERITY [facility] - 2 2 [facility] MEDICAL OFFICE 44562 [facility] OUTPATIEN 2 2 [facility] T VISIT 15 MINUTES OFFICE 10950 BRIA OUTPATIEN 2 2 DON T VISIT 25 MINUTES [facility] - 2 2 [facility] MEDICAL OFFICE 36464 ENEDELIA Seymour OUTPATIEN 2 2 T VISIT 15 MINUTES INITIAL 69752 BRIA PREVENTIV 2 2 DON E MEDICINE NEW PT AGE 12-17 YR [facility]29 [facility] 2 2 W [facility] T VISIT MEDICAL MODERATE SEVERITY OFFICE 24656 LIVAS SAMMI LIVAS SAMMI OUTPATIEN 2 2 T VISIT 15 MINUTES OFFICE 55799 ENEDELIA Seymour OUTPATIEN 2 2 T VISIT 15 MINUTES OFFICE 70422 ENEDELIA Seymour OUTPATIEN 2 2 T VISIT 15 MINUTES OFFICE [id number] LIVAS SAMMI LIVAS SAMMI CONSULTAT 2 2 ION NEW/ESTAB PATIENT 60 MIN OFFICE [id number] ENEDELIA Seymour OUTPATIEN 2 2 T VISIT 15 MINUTES OFFICE [id number] ENEDELIA Seymour OUTPATIEN 2 2 T VISIT 15 MINUTES OFFICE [id number] ENEDELIA Seymour OUTPATIEN 2 2 T VISIT 15 MINUTES [facility] - 2 2 W OUTPATIEN REGIONAL T MEDICAL OFFICE [id number] ENEDELIA Seymour OUTPATIEN 2 2 T VISIT 15 MINUTES
--- OUTSIDE RECORDS SUMMARY | 2017-07-17 21:37 | External Medical Summary Rpt | CCD ---
Author Author , MARY HERNANDEZ Address Unknown Phone [email or web address] Care Team Providers Care Defensive Line Coach Name Role Phone ALLERGY, ASTHMA & Unavailable [...] JAMES Unavailable Unavailable JOYNER, JOYNER Unavailable Unavailable JOYNER JW, JOYNER Unavailable Unavailable JW HOGGE ROOPA, HOGGE ROOPA Unavailable Unavailable HOGGE ROOPA, HOGGE ROOPA Unavailable Unavailable HURST KENNY, HURST KENNY Unavailable Unavailable HURST KENNY, HURST KENNY Unavailable Unavailable TY, TY Unavailable Unavailable TY ROBE, TY Unavailable Unavailable [facility], [facility] Unavailable Unavailable [facility] Un[facility] Un[facility] LIVAS SAMMI, LIVAS SAMMI Unavailable Unavailable LIVAS SAMMI, LIVAS SAMMI Unavailable Unavailable [facility], Unavailable Unavailable [facility] Un[facility] ASS[facility]AT, [facility] Un[facility] Un[facility], [facility] Unavailable Unavailable [facility], [facility] Unavailable Unavailable MED[facility], [facility] Unavailable [facility]available [facility], [...] [facility], SPADY Unavailable Unavailable CLARK KER, CLARK KER Unavailable Unavailable CLARK KER, CLARK KER Unavailable Unavailable RICK HODAN, RICK Unavailable Unavailable HODAN BRIA DON, BRIA Unavailable Unavailable DON BRIA DON, BRIA Unavailable Unavailable DON BRIA SHIREEN, BRIA Unavailable Unavailable SHIREEN Purpose Continuity of Care Document - 10-19-2011 through 2016 Problems Code Diagnosis DOS Provider Status E162 HYPOGLYCEMI 05-17-2017 [facility] UNSPECIF[facility] MEDICAL K047 PERIAPICAL 05-17-2017 [facility] ABSCESS N EMERGENCY WITHOUT PHYS SINUS L239 ALLERGIC 05-17-2017 [facility] CONTACT [facility] DERMATITIS UNSPECIFIED CAUSE Z789 OTHER 05-17-2017 [facility] SPECIFIED P[facility] HEALTH STATUS Z880 ALLERGY 05-17-2017 [facility] STATUS TO REGIONAL [place] MEDICAL H5213 MYOPIA 03-22-2017 [facility] B[facility] OPT[facility] Z33041 UNSPECIFIED 12-21-2016 [place] ASTHMA REGIONAL UNCOMPLICAT MEDICAL ED K219 GASTRO-ESOP 12-21-2016 [facility] REFLUX REGIONAL DISEASE MEDICAL WITHOUT ESOPHAGITIS K811 CHRONIC 12-21-2016 [place] CHOLECYSTIT GENERAL IS SURGERY K828 OTHER 12-21-2016 [facility] SPECIFIED REGIONAL DISEASES OF MEDICAL GALLBLADDER Z6829 BODY MASS 12-21-2016 [facility] INDEX BMI REGIONAL 29.0-29.9 MEDICAL ADULT Z720 TOBACCO USE 12-21-2016 [facility] R1084 GENERALIZED 11-29-2016 [place] ABDOMINAL REGIONAL PAIN MEDICAL R110 NAUSEA 11-29-2016 [facility] R109 UNSPECIFIED 11-20-2016 [facility] A[facility]INAL [facility] PAIN ASSOCIAT R112 NAUSEA WITH 11-20-2016 [facility] VOMITING [facility] UNSPECIFIED ASSOCIAT J309 ALLERGIC 08-06-2016 ALLERGY, RHINITIS ASTHMA & UNSPECIFIED IMMUNOLOGY E08881 ENCOUNTER 07-16-2016 [facility] CONTRACEPT DEVICE Z309 ENCOUNTER 07-16-2016 [facility] VE MANAGEMENT UNS J69438 PAIN IN 06-29-2016 [place] LEFT ARM REGIONAL MEDICAL Z3040 ENCOUNTER 06-29-2016 [facility] FOR RADIOLOGY SURVEILLANC ASSOCIAT E CONTRACEPTI VES UNS B86 SCABIES 06-01-2016 [facility] J3089 OTHER 06-01-2016 [facility] ALLERGIC PSC RHINITIS I31981 OTHER 06-01-2016 [facility] ASTHMA PSC L2389 ALLERGIC 06-01-2016 [facility]TACT [facility] DERMATITIS DUE TO OTHER AGENTS N898 OTHER 04-18-2016 MEDICAL SPECIFIED DIAGNOSTIC NONINFLAMMA [facility] TORY DISORDERS VAGINA J00492 ENCOUNTER 04-18-2016 MEDICAL BOOKMAKER MAP EXAM DIAGNOSTIC GENERAL RTN [facility] W/O [...] EMERGENCY OF UPPER PHYS ARM AND FOREARM 37738 UNS 01-27-2015 [facility] GASTRITIS&G PSC ASTRODUODIT IS W/O MENTION HEMORR 6260 ABSENCE OF 01-27-2015 [facility] MENSTRUATIO PSC N 4619 ACUTE 01-11-2015 [facility] SINUSITIS, PSC UNSPECIFIED V2540 UNSPECIFIED 07-28-2014 [facility] [place] SURVEILLANC E 97668 ASTHMA 06-24-2014 [facility] UNSPECIFIED PSC WITH EXACERBATIO N V255 INSERTION 04-20-2013 LAWRENCE DIXON OF IMPLANTABLE SUBDERMAL CONTRACEPTI VE V242 ROUTINE 04-03-2013 HOGGE ROOPA FOLLOW-UP V258 OTHER 04-03-2013 HOGGE ROOPA SPECIFIED CONTRACEPTI VE MANAGEMENT 56436 POOR 02-26-2013 [facility] GROWTH MGMT MOTH ANTPRTM COND/COMP V270 OUTCOME OF 02-26-2013 [facility] DELIVERY SINGLE LIVEBORN 53540 ASTHMA, 02-24-2013 [place] UNSPECIFIED REGIONAL , MEDICAL UNSPECIFIED STATUS 650 NORMAL 02-24-2013 HURST KENNY DELIVERY 45117 POOR 02-24-2013 [facility] GR[facility] REGIONAL AFFECT MEDICAL MANAGEMENT MOTH DELIV 58233 OTH 02-24-2013 [facility] [place] INC CONDS AFFECT MANAGEMENT MOTH DELIV 80869 ABN FETL 02-24-2013 [place] HRT REGIONAL RATE/RHYTHM MEDICAL DELIV W/WO ANTPRTM COND 64533 HIGH 02-24-2013 [facility] VAG[facility]AL LACERATION MEDICAL WITH DELIVERY 06107 UTERINE 02-20-2013 [facility] SIZE DATE DISCREPANCY ANTPRTM COND/COMPL V220 SUPERVISION 02-20-2013 [facility] OF NORMAL FIRST V2383 SUPERVISION 02-20-2013 [facility] HIGH-RISK PG YOUNG PRIMIGRAVID A V284 02-20-2013 [facility] SCR GROWTH RETARDATION USING US 6259 UNSPEC 02-06-2013 [facility] W/FEMALE GENITAL ORGANS V286 SCREENING 02-06-2013 MORENA GWENDOLYN OF STREPTOCOCC [place] B 4779 ALLERGIC 02-03-2013 LIVAS SAMMI RHINITIS CAUSE UNSPECIFIED 93642 OTHER 02-03-2013 LIVAS SAMMI DISEASES OF NASAL CAVITY AND SINUSES V061 NEED PROPH 01-22-2013 SHOWER WALTERS VAC W/COMB DIPHTH-TETA NUS-PERTUSS VAC 0419 BACTERIAL 01-21-2013 ALLA CARNES INFECTION UNSPECIFIED CCE & UNS SITE 07089 UNSPECIFIED 01-21-2013 ALLA CARNES VAGINITIS AND VULVOVAGINI TIS 06102 UNSPECIFIED 01-21-2013 ALLA CARNES ABNORMALITY OF LABOR ANTEPARTUM V6545 COUNSELING 01-08-2013 ALLA CARNES OTHER SEXUALLY TRANSMITTED DISEASES V2889 OTHER 12-12-2012 TRACIEBipin [place] SPECIFIED SCREENING V2881 ENCOUNTER 10-17-2012 BRIA DOBBS FOR ANATOMIC SURVEY 3829 UNSPECIFIED 09-07-2012 [place] OTITIS [facility] MEDIA MEDICAL 6268 OTH D/O 08-12-2012 BRIA DOBBS MENSTRUATIO N&OTH ABN BLEED FE GNT TRACT V0481 NEED 08-12-2012 BRIA DOBBS PROPHYLACTI C VACCINATION &INOCULATIO N FLU V7242 08-12-2012 BRIA DOBBS EXAMINATION OR TEST POSITIVE RESULT 28487 WHEEZING 07-15-2012 [facility] 7862 COUGH 07-15-2012 [facility] 490 BRONCHITIS 07-08-2012 MCDANIELS G NOT SPECIFIED ACUTE OR CHRONIC V7231 ROUTINE 05-05-2012 BRIA DOBBS GYNECOLOGIC AL EXAMINATION V7388 SPECIAL SCR 05-05-2012 BRIA DON EXAMINATION OTH SPEC CHLAMYDIAL DZ V745 SCREENING 05-05-2012 BRIA DOBBS EXAMINATION FOR VENEREAL DISEASE 920 CONTUSION 04-28-2012 CLARK KER OF FACE SCALP AND NECK EXCEPT EYE E9179 OTHER 04-28-2012 CLARK KER STRIKING AGAINST W/WO SUBSEQUENT FALL 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 MEDICAL 81481 UNSPECIFIED 10-19-2011 ENEDELIA Seymour VIRAL INFECTION IN CCE & UNS SITE 462 ACUTE 10-19-2011 ENEDELIA Seymour PHARYNGITIS Medications Na ND Rx Da Fi Fi Am Da Di Ph RX Ph St me C No te ll ll ou ys ag ar # ys at rm s nt no ma ic us Or Da si cy ia de te s n re d CL 63 08 09 40 10 00 MI Ac IN 30 -1 -2 .0 00 [...] TR 45 05 06 30 14 00 MI Ac IA 80 -1 -1 .0 00 L- ti MC 20 6- 6- 00 07 MA ve IN 04 20 20 65 RT OL 93 17 17 99 ON 5 07 PH E AR 0. MA 5% CY OI #5 NT 71 ME NT PHILLIPS 00 05 06 3. 21 00 MI Ac LA 37 -0 -0 00 00 L- ti NE 83 4- 9- 0 07 MA ve 34 20 20 86 RT PA 05 17 17 21 TC 3 60 PH H AR MA CY #1 56 9 PHILLIPS 00 04 05 3. 21 00 MI Ac LA 37 -0 -1 00 00 L- ti NE 83 6- 2- 0 07 MA ve 34 20 20 86 RT PA 05 17 17 21 TC 3 60 PH H AR MA CY #1 56 9 CL 00 04 05 21 7 00 MI Ac IN 59 -1 -1 .0 00 L- ti DA 15 1- 2- 00 07 MA ve MY 70 20 20 87 RT CI 80 17 17 84 N 1 24 PH HC AR L MA 15 CY 0 MG #1 56 CA 9 PS UL E HY 53 03 04 [address] 74 -2 -2 .0 00 S ti OC 60 4- 8- 00 01 PH ve OD 10 20 20 32 AR ON 90 17 17 30 MA -A 1 31 CY CE TA #0 CO 23 NO 32 PH EN 5- 32 5 ## 03 04 60 30 00 MI Ac ## -2 -2 .0 00 L- ti ## 5- 8- 00 08 MA ve ## 20 20 84 RT ## 17 17 71 # 45 PH AR MA CY #1 56 9 PHILLIPS 00 03 04 3. 21 00 WA Ac LA 37 -0 -1 00 00 L- ti NE 83 9- 4- 0 07 MA ve 34 20 20 86 RT PA 05 17 17 21 TC 3 60 PH H AR MA CY #1 56 9 PHILLIPS 00 02 03 3. 21 00 MI Ac LA 37 -0 -1 00 00 [...] Procedures Procedure DOS Code Location Performer Comment HEMOGLOBI 92846 [facility] N 7 W W GLYCOSYLA [facility] RADHA A1C MEDICAL MEDICAL COLLECTIO 87890 [facility] N VENOUS 7 W W BLOOD [facility] VENIPUNCT MEDICAL MEDICAL URE COMPREHEN 57945 [facility] SIVE 7 W W METABOLIC [facility] [address] [facility] INSULIN 7 W W [facility] MEDICAL LENS V2784 LENIN ZUNIGA POLYCARBO 7 OPTICAL MATT OR EQUAL ANY INDEX PER LENS FITTING 64944 LENIN ZUNIGA SPECTACLE 7 OPTICAL S XCPT APHAKIA MONOFOCAL FRAMES V2020 LENIN ZUNIGA PURCHASES 7 OPTICAL SPHERE V2101 LENIN ZUNIGA SINGLE 7 OPTICAL VISION +/- 4.12 +/- 7.00D PER LENS SCRATCH V2760 LENIN ZUNIGA RESISTANT 7 OPTICAL COATING PER LENS OPHTH 14172 BLU BLU MEDICAL 7 XM&EVAL COMPRE NEW PT 1/> VST DETERMINA 03979 BLU BLU TION 7 REFRACTIV E STATE URINE 23792 [facility] 7 W W TEST [facility] MEDICAL COLOR CMPRSN METHS LEVEL III 65782 CONWSOFI [facility] SURG 7 W W PATHOLOGY REGIONAL REGIONAL MEDICAL MEDICAL GROSS&AGUS ROSCOPIC EXAM INJECTION J2370 [facility] ME[facility] 7 W W PHENYLEPH REGIONAL REGIONAL RINE HCL MEDICAL MEDICAL UP TO 1 ML INJECTION J2765 [facility] 7 W W METOCLOPR REGIONAL REGIONAL AMIDE HCL MEDICAL MEDICAL UP TO 10 MG INJECTION J2250 CONDOWVIE ME[facility] 7 W W MIDAZOLAM REGIONAL REGIONAL HCL PER MEDICAL MEDICAL 1 MG RINGERS J7120 [facility] LACTATE 7 W W INFUSION REGIONAL REGIONAL UP TO MEDICAL MEDICAL 1000 CC LAPS SURG 42850 GENESISWSOFI SPADY 7 W GENERAL CHOLECYST SURGERY ECTOMY W/CHOLANG IOGRAPHY CHOLANGIO 51620 [facility] GRAPHY&/P 7 ANCREATOG RADIOLOGY [facility] ASSOC[facility]AT NTRAOP RS&I INJECTION J1885 GENESISWSOFI MEADOW[facility]IE 7 W W KETOROLAC REGIONAL REGIONAL MEDICAL MEDICAL TROMETHAM INE PER 15 MG INJECTION J2704 SHANELL MEAW[facility] PROPOFOL 7 W W 10 MG REGIONAL REGIONAL MEDICAL MEDICAL INJECTION J2710 [facility] MEADOW[facility]IE 7 W W NEOSTIGMI REGIONAL REGIONAL NE MEDICAL MEDICAL METHYLSUL FATE UP TO 0.5 MG INJECTION J3010 SHANELL [facility] FENTANYL 7 W W CITRATE REGIONAL REGIONAL 0.1 MG MEDICAL MEDICAL ANES 93636 COMMONWEA JAMES INTRAPERI 7 LTH TONEAL ANESTHESI UPPER A PSC ABDOMEN W/LAPS NOS RAD EXP G9500 [facility] INDICES/E 7 XP TM & RADIOLOGY NUMB ASSOCIAT FLUORO IMAGES DOC TECHNETIU A9537 SHANELL REECE M TC-99M 7 W W MEBROFENI REGIONAL REGIONAL N DX UP MEDICAL MEDICAL TO 15 MCI HEPATOBIL 33893 [facility] SYST 7 IMAG INC RADIOLOGY GB ASSOCIAT W/PHARMA INTERVENJ INJECTION J2805 SHANELL [facility] 7 W W SINCALIDE REGIONAL REGIONAL [address] [place] [address] [facility] ABDOMINAL 7 W W REAL REGIONAL REGIONAL TIME MEDICAL MEDICAL W/IMAGE LIMITED FINAL G9551 NIYAHDECLAN GEORGE REPR ABD 7 IMAG STS RADIOLOGY W/O ASSOCIAT INCIDNT FND LES NTD: PREPJ& 54902 ALLERGY, LIVAS SAMMI ALLERGEN 6 ASTHMA & IMMUNOTHE IMMUNOLOG RAPY Y 1/HOUSEKEEPER/CUSTODIAN/LAUNDRY WORKER ANTIGEN REMOVAL 37532 [place] ALLA NON-BIODE 6 [facility] DELIVERY IMPLANT RADEX 35208 [facility] HUMERUS 6 EIDER DANETTE MINIMUM 2 RADIOLOGY VIEWS ASSOCIAT PREPJ& 94426 ALLERGY, LIVAS SAMMI ALLERGEN 6 ASTHMA & IMMUNOTHE IMMUNOLOG RAPY Y 1/HOUSEKEEPER/CUSTODIAN/LAUNDRY WORKER ANTIGEN IADNA 97352 MEDICAL MEDICAL NILDA 6 DIAGNOSTI DIAGNOSTI SPECIES C [facility] C [facility] AMPLIFIED PROBE TQ IADNA 73975 MEDICAL MEDICAL GARDNEREL 6 DIAGNOSTI DIAGNOSTI LA [facility] VAGINALIS AMPLIFIED PROBE TQ IADNA 03665 MEDICAL MEDICAL CHLAMYDIA 6 DIAGNOSTI DIAGNOSTI [facility] TRACHOMAT IS AMPLIFIED PROBE TQ IADNA 35638 MEDICAL MEDICAL TRICHOMON 6 DIAGNOSTI DIAGNOSTI [facility] VAGINALIS AMPLIFIED PROBE TECH IADNA NOS 05247 MEDICAL MEDICAL 6 DIAGNOSTI DIAGNOSTI AMPLIFIED C [facility] PROBE TQ EACH ORGANISM IADNA 99900 MEDICAL MEDICAL NEISSERIA 6 DIAGNOSTI DIAGNOSTI [facility] GONORRHOE AE AMPLIFIED PROBE TQ PREPJ& 96677 ALLERGY, LIVAS SAMMI ALLERGEN 6 ASTHMA & IMMUNOTHE IMMUNOLOG RAPY Y 1/HOUSEKEEPER/CUSTODIAN/LAUNDRY WORKER ANTIGEN PREPJ& 24563 ALLERGY, LIVAS SAMMI ALLERGEN 6 ASTHMA & IMMUNOTHE IMMUNOLOG RAPY Y 1/HOUSEKEEPER/CUSTODIAN/LAUNDRY WORKER ANTIGEN PREPJ& 36282 ALLERGY, LIVAS SAMMI ALLERGEN 6 ASTHMA & IMMUNOTHE IMMUNOLOG RAPY Y 1/HOUSEKEEPER/CUSTODIAN/LAUNDRY WORKER ANTIGEN PREPJ& 48827 ALLERGY, LIVAS SAMMI ALLERGEN 5 ASTHMA & IMMUNOTHE IMMUNOLOG RAPY Y 1/HOUSEKEEPER/CUSTODIAN/LAUNDRY WORKER ANTIGEN [facility] 59773 ALLERGY, DOUGLAS W/VC 5 ASTHMA & ROS EXPIRATOR IMMUNOLOG Y ISIDRA Y W/WO MXML VOL VNTJ PROF SVCS 88480 [facility] MCDANIELS ALLG 5 PSC GAR IMMNTX X W/PRV ALLGIC XTRCS 1 NJX PREPJ& 67103 ALLERGY, LIVAS SAMMI ALLERGEN 5 ASTHMA & IMMUNOTHE IMMUNOLOG RAPY Y 1/HOUSEKEEPER/CUSTODIAN/LAUNDRY WORKER ANTIGEN PERCUTANE 86708 ALLERGY, DOUGLAS OUS TESTS 5 ASTHMA & ROS IMMUNOLOG W/ALLERGE Y DARYN EXTRACTS SCRATCH V2760 MERARY REAGAN RESISTANT 5 ADA ADA COATING PER LENS LENS V2784 MERARY REAGAN POLYCARBO 5 ADA ADA MATT OR EQUAL ANY INDEX PER LENS FRAMES V2020 MERARY REAGAN PURCHASES 5 ADA ADA SPHERE V2101 MERARY REAGAN SINGLE 5 ADA ADA VISION +/- 4.12 +/- 7.00D PER LENS FITTING 13589 MERARY REAGAN SPECTACLE 5 ADA ADA S XCPT APHAKIA MONOFOCAL OPHTH 40634 [facility] 5 CHRISS CHRISS XM&EVAL COMPRHNSV ESTAB PT 1/> INCISION 47926 [facility] & 5 [place]O SHIREEN DRAINAGE EMERGENCY ABSCESS PHYS COMPLICAT ED/MULTIP LE URINE 51377 [facility] ENEDELIA 5 PSC GAR TEST [place] [address] [facility] HPYLORI 5 W W STOOL [facility] RPR&REFIT 39537 MERARY REAGAN G 4 ADA ADA SPECTACLE S EXCEPT APHAKIA FRAMES V2020 MERARY REAGAN PURCHASES 4 ADA ADA FRAMES V2020 LENIN REAGAN PURCHASES 4 OPTICAL ADA SPHERE V2101 LENIN REAGAN SINGLE 4 OPTICAL ADA VISION +/- 4.12 +/- 7.00D PER LENS LENS V2784 LENIN REAGAN POLYCARBO 4 OPTICAL ADA MATT OR EQUAL ANY INDEX PER LENS SCRATCH V2760 LENIN REAGAN RESISTANT 4 OPTICAL ADA COATING PER LENS FITTING 00820 CHRISTINEERICAALYSA MERARY SPECTACLE 4 OPTICAL ADA S XCPT APHAKIA MONOFOCAL OPHTH 97773 [facility] MEDICAL 4 CHRISS CHRISS XM&EVAL COMPRHNSV ESTAB PT 1/> ETONOGEST J7307 LAWRENCE DIXON LAWRENCE DIXON REL 3 CNTRACPT IMPL SYS INCL IMPL & SPL INSJ 25913 LAWRENCE DIXON LAWRENCE DIXON NON-BIODE 3 GRADABLE DRUG DELIVERY IMPLANT URINE 86202 LAWRENCE DIXON LAWRENCE DIXON 3 TEST VISUAL COLOR CMPRSN METHS POSTPARTU 30564 [facility] 3 ONLY SEPARATE PROCEDURE [facility] 06071 TRACIE HILLY [place] DISCHARGE 3 DAY MANAGEMEN T 30 MIN/< SBSQ 66286 TRACIE [place] [facility] 3 CARE/DAY 15 MINUTES LEVEL V 02128 [facility] HARLAMERT SURG 3 [place] INC HEN PATHOLOGY GROSS&AGUS ROSCOPIC EXAM VAGINAL 11310 TR[facility] TRACIE [facility] DELIVERY 3 ONLY NEURAXIAL 73100 HURST KENNY HURST KENNY LABOR 3 ANALG/ANE S PLND VAGINAL DELIVERY INDUCTION 7301 [facility] ME[facility]OW[facility] LABOR 3 W W ARTIFICIA REGIONAL REGIONAL L RUPTURE MEDICAL MEDICAL MEMBRANES OTHER 7359 [facility] MEAWV[facility] MANUALLY 3 W W ASSISTED REGIONAL REGIONAL DELIVERY MEDICAL MEDICAL URNLS DIP 58592 [facility] 3 STICK/TAB LET RGNT NON-AUTO W/O MICRSCP 28476 [facility] NONSTRESS 3 TEST US PREG 15958 [facility] UTERUS 3 REAL TIME F/U TRNSABDL PER FETUS URNLS DIP 64596 [facility] 3 STICK/TAB LET RGNT NON-AUTO W/O MICRSCP URNLS DIP 98234 MORENA MORENA 3 GWENDOLYN GWENDOLYN STICK/TAB LET RGNT NON-AUTO W/O MICRSCP IADNA 13202 [facility] NEISSERIA 3 DIAGNOSTI DIAGNOSTI CS CS GONORRHOE AE AMPLIFIED PROBE TQ IADNA 48187 [facility] CHLAMYDIA 3 DIAGNOSTI DIAGNOSTI CS CS TRACHOMAT IS AMPLIFIED PROBE TQ CUL 80361 SHANELL REECE PRSMPTV [address] [facility] ORGANISM MEDICAL MEDICAL SCRN W/COLONY ESTIMJ NITRIC 58475 LIVAS SAMMI LIVAS SAMMI OXIDE 3 GAS DETERMINA TION SPMTRY 23821 LIVAS SAMMI LIVAS SAMMI W/VC 3 EXPIRATOR Y ISIDRA W/WO MXML VOL VNTJ URNLS DIP 56136 SHOWER SHOWER 3 WALTER[facility] WALTERS STICK/TAB LET RGNT NON-AUTO W/O MICRSCP EVAL C/V 80432 SHANELL REECE AMNIOTIC 3 W W [facility] PROTEIN MEDICAL MEDICAL QUAL [facility] G0378 SHANELL REECE OBSERVATI 3 W W ON [facility] SERVICE MEDICAL MEDICAL PER HOUR URNLS DIP 85388 SHANELL HURTADOWSOFI 3 W W STICK/TAB [facility] LET MEDICAL MEDICAL REAGENT AUTO MICROSCOP Y SMR PRIM 07815 SHANELL REECE SRC WET 3 W W [facility] NFCT AGT MEDICAL MEDICAL 64234 SHANELL REECE NONSTRESS 3 W W [facility] MEDICAL MEDICAL IADNA 23547 MEDICAL MEDICAL GARDNEREL 3 DIAGNOSTI DIAGNOSTI LA [facility] C LAB LLC VAGINALIS AMPLIFIED PROBE TQ IADNA 09486 MEDICAL MEDICAL CHLAMYDIA 3 DIAGNOSTI DIAGNOSTI C [facility] C [facility] LLC TRACHOMAT IS AMPLIFIED PROBE TQ IADNA 83141 MEDICAL MEDICAL NEISSERIA 3 DIAGNOSTI DIAGNOSTI C [facility] C [facility] LLC GONORRHOE AE AMPLIFIED PROBE TQ IADNA NOS 52082 MEDICAL MEDICAL 3 DIAGNOSTI DIAGNOSTI AMPLIFIED C [facility] C [facility] PROBE TQ EACH ORGANISM PREPJ& 12082 LIVAS SAMMI LIVAS SAMMI ALLERGEN 3 IMMUNOTHE RAPY 1/HOUSEKEEPER/CUSTODIAN/LAUNDRY WORKER ANTIGEN URNLS DIP 72837 TRACIE [facility] TR[facility]IE [facility] 3 STICK/TAB LET RGNT NON-AUTO W/O MICRSCP URNLS DIP 19730 TRACIE [facility] TRACIE [facility] 3 STICK/TAB LET RGNT NON-AUTO W/O MICRSCP US PREG 03472 [facility] UTERUS 3 REAL TIME F/U TRNSABDL PER FETUS GLUCOSE 49466 [facility] TOLERANCE 3 DIAGNOSTI DIAGNOSTI TEST GTT CS CS 3 SPECIMENS URNLS DIP 14986 MORENA MORENA 3 GWENDOLYN GWENDOLYN STICK/TAB LET RGNT NON-AUTO W/O MICRSCP PREPJ& 02358 LIVAS SAMMI LIVAS SAMMI ALLERGEN 3 IMMUNOTHE RAPY 1/HOUSEKEEPER/CUSTODIAN/LAUNDRY WORKER ANTIGEN US PREG 81751 BRIA BRIA UTERUS 3 DON DON W/DETAIL MARQUEZ 1ST GESTATION URNLS DIP 20538 BRIA BRIA 3 DON DON STICK/TAB LET RGNT NON-AUTO W/O MICRSCP URNLS DIP 21381 SHOWER SHOWER 2 WALTERS WALTERS STICK/TAB LET RGNT NON-AUTO W/O MICRSCP IADNA 69153 MEDICAL MEDICAL NEISSERIA 2 DIAGNOSTI DIAGNOSTI C [facility] C LAB LLC GONORRHOE AE AMPLIFIED PROBE TQ IADNA 91890 MEDICAL MEDICAL CHLAMYDIA 2 DIAGNOSTI DIAGNOSTI C [facility] C [facility] LLC TRACHOMAT IS AMPLIFIED PROBE TQ PRESSURIZ 21704 SHANELL REECE ED/NONPRE 2 W W SSURIZED [facility] INHALATIO MEDICAL MEDICAL N TREATMENT COLLECTIO 39778 SHOWER SHOWER N VENOUS 2 [place] [address] SHOWER SHOWER 2 WALTER[place] WALTER[facility] UTERUS 14 WK TRANSABDL GESTAT PREPJ& 95515 LIVAS SAMMI LIVAS SAMMI ALLERGEN 2 IMMUNOTHE RAPY 1/HOUSEKEEPER/CUSTODIAN/LAUNDRY WORKER ANTIGEN URINE 56431 BRIA BRIA 2 DON DON TEST VISUAL COLOR CMPRSN METHS PROF SVCS 21782 ENEDELIA MCDANIELS G ALLG 2 IMMNTX X W/PRV ALLGIC XTRCS 1 NJX RADIOLOGI 10-16-201 59990 [facility] EXAM 2 JW CHEST 2 RADIOLOGY VIEWS ASSOCIAT FRONTAL&L ATERAL PROF [facility] 86650 ENEDELIA Seymour ALLG 2 IMMNTX X W/PRV ALLGIC XTRCS 1 NJX PROF [facility] 76568 ENEDELIA Seymour ALLG 2 IMMNTX X W/PRV ALLGIC XTRCS 1 NJX PROF [facility] 91998 ENEDELIA Seymour ALLG 2 IMMNTX X W/PRV ALLGIC XTRCS NJXS PREPJ& 15787 LIVAS SAMMI LIVAS SAMMI ALLERGEN 2 IMMUNOTHE RAPY 1/HOUSEKEEPER/CUSTODIAN/LAUNDRY WORKER ANTIGEN PROF [facility] 32366 ENEDELIA Seymour ALLG 2 IMMNTX X W/PRV ALLGIC XTRCS 1 NJX PROF [facility] 61346 ENEDELIA Seymour ALLG 2 IMMNTX X W/PRV ALLGIC XTRCS 1 NJX PROF [facility] 71243 ENEDELIA Seymour ALLG 2 IMMNTX X W/PRV ALLGIC XTRCS 1 NJX PROF [facility] 41837 ENEDELIA Seymour ALLG 2 IMMNTX X W/PRV ALLGIC XTRCS 1 NJX PROF [facility] 73094 ENEDELIA Seymour ALLG 2 IMMNTX X W/PRV ALLGIC XTRCS 1 NJX IADNA 54394 QUEST QUEST NEISSERIA 2 DIAGNOSTI DIAGNOSTI CS CS GONORRHOE AE AMPLIFIED PROBE TQ GONADOTRO 44879 QUEST QUEST PIN 2 DIAGNOSTI DIAGNOSTI CHORIONIC CS CS QUANTITAT ILAN IADNA 69220 QUEST QUEST CHLAMYDIA 2 DIAGNOSTI DIAGNOSTI CS CS TRACHOMAT IS AMPLIFIED PROBE TQ URINE 20262 BRIA BRIA 2 DON DON TEST VISUAL COLOR CMPRSN METHS PROF [facility] 27882 ENEDELIA Seymour ALLG 2 IMMNTX X W/PRV ALLGIC XTRCS 1 NJX RADEX 84490 CLARK KER CLARK KER NASAL 2 BONES COMPLETE MINIMUM 3 VIEWS PROF [facility] 57565 ENEDELIA Seymour ALLG 2 IMMNTX X W/PRV ALLGIC XTRCS 1 NJX PROF [facility] 41823 ENEDELIA MCDANIELS Lion ALLG 2 IMMNTX X W/PRV ALLGIC XTRCS 1 NJX PREPJ& 60820 LIVAS SAMMI LIVAS SAMMI ALLERGEN 2 IMMUNOTHE RAPY 1/HOUSEKEEPER/CUSTODIAN/LAUNDRY WORKER ANTIGEN PROF [facility] 93981 ENEDELIA MCDANIELS Lion ALLG 2 IMMNTX X W/PRV ALLGIC XTRCS 1 NJX DETERMINA 19609 AWOSIKA AWOSIKA TION 2 CHRISS CHRISS REFRACTIV E STATE OPHTH 69965 AWOSIKA AWOSIKA MEDICAL 2 CHRISS CHRISS XM&EVAL COMPRE NEW PT 1/> VST NITRIC 02799 LIVAS SAMMI LIVAS SAMMI OXIDE 2 GAS DETERMINA TION SPMTRY 46300 LIVAS SAMMI LIVAS SAMMI W/VC 2 EXPIRATOR Y ISIDRA W/WO MXML VOL VNTJ PROF [facility] 86253 ENEDELIA MCDANIELS Lion ALLG 2 IMMNTX X W/PRV ALLGIC XTRCS 1 NJX PROF [facility] 27990 ENEDELIA MCDANIELS Lion ALLG 2 IMMNTX X W/PRV ALLGIC XTRCS 1 NJX PROF [facility] 35530 ENEDELIA MCDANIELS Lion ALLG 2 IMMNTX X W/PRV ALLGIC XTRCS 1 NJX PROF [facility] 19749 ENEDELIA MCDANIELS Lion ALLG 2 IMMNTX X W/PRV ALLGIC XTRCS 1 NJX PREPJ& 63304 LIVAS SAMMI LIVAS SAMMI ALLERGEN 2 IMMUNOTHE RAPY 1/HOUSEKEEPER/CUSTODIAN/LAUNDRY WORKER ANTIGEN NITRIC 77924 LIVAS SAMMI LIVAS SAMMI OXIDE 2 GAS DETERMINA TION DEMO&/MEI 64634 LIVAS SAMMI LIVAS SAMMI L OF PT 2 UTILIZ AERSL GEN/NEB/I NHLR/IP PERCUTANE 87379 LIVAS SAMMI LIVAS SAMMI OUS TESTS 2 W/ALLERGE DARYN EXTRACTS BRNCDILAT 09108 LIVAS SAMMI LIVAS SAMMI RSPSE 2 SPMTRY PRE&POST- BRNCDILAT ADMN DEMO&/MEI 86097 ENEDELIA Lion ENEDELIA Lion L OF PT 2 UTILIZ AERSL GEN/NEB/I NHLR/IP RADEX 05461 SHANELL REECE FOOT 2 W W COMPLETE [facility]AL [facility]AL MINIMUM 3 MEDICAL MEDICAL VIEWS IAADIADOO 46612 ENEDELIA MCDANIELS Lion 2 [place] CCUS GROUP A Encounters Encounter Start End Date Code Location Performer Type Date [facility] ENEDELIA OUTPATIEN 7 7 PSC T VISIT 15 MINUTES EMERGENCY 51855 GENESISWVIE 7 7 W [facility] CHER[facility] T VISIT MEDICAL MODERATE SEVERITY OFFICE 74357 KID CARE ENEDELIA OUTPATIEN 7 7 PSC T VISIT 15 MINUTES [facility] PAD[facility] OUTPATI[facility] 7 7 W GENERAL T NEW 45 SURGERY [facility] 31228 KID CARE TY OUTPATIEN 7 7 PSC T VISIT 15 MINUTES OFFICE 26801 [place] ALLA OUTPATIEN 6 6 FAMILY DEYVI T NEW 20 HEALTH MINUTES [facility] 10107 KID CARE MCDANIELS OUTPATIEN 6 6 PSC GAR T VISIT 15 MINUTES OFFICE 45861 ALLERGY, DOUGLAS OUTPATIEN 5 5 ASTHMA & ROS T VISIT IMMUNOLOG 15 Y MINUTES OFFICE 88020 ALLERGY, DOUGLAS OUTPATIEN 5 5 ASTHMA & ROS T VISIT IMMUNOLOG 25 Y MINUTES OFFICE 56377 [facility] MCDANIELS OUTPATIEN 5 5 PSC GAR T VISIT 15 MINUTES OFFICE 78968 [facility] TY OUTPATIEN 5 5 PSC ROBE T VISIT 15 MINUTES EMERGENCY 81743 [facility] 5 5 [place] SHIREEN DEPARTMEN EMERGENCY T VISIT PHYS MODERATE SEVERITY OFFICE 91957 [facility] MCDANIELS OUTPATIEN 5 5 PSC GAR T VISIT 15 MINUTES HOSPITAL MEAWVIE - 5 5 W OUTPATI REGIONAL T MEDICAL OFFICE 20120 [facility] MCDANIELS OUTPATIEN 5 5 PSC GAR T VISIT 25 MINUTES OFFICE 96501 [facility] OUTPATIEN 4 4 PRIMARY HODAN T VISIT CARE 15 CENTER MINUTES OFFICE 82874 [facility] MCDANIELS OUTPATIEN 4 4 PSC GAR T VISIT 25 MINUTES HOSPITAL MEADOWVIE - 3 3 W INPATIENT REGIONAL MEDICAL OFFICE 23282 TRACIE [place] OUTPATIEN 3 3 T VISIT 15 MINUTES OFFICE 18022 TRACIE [place] OUTPATIEN 3 3 T VISIT 15 MINUTES OFFICE 99835 MORENA OUTPATIEN 3 3 GWENDOLYN T VISIT 15 MINUTES [facility] [address] [facility] 43630 LIVAS SAMMI LIVAS SAMMI OUTPATIEN 3 3 T VISIT 15 MINUTES OFFICE 07626 SHOWER OUTPATIEN 3 3 WALTERS T VISIT 15 MINUTES [facility] - [facility] [address] [facility] 18659 TRACIE OT[place]IA OUTPATIEN 3 3 T VISIT 15 MINUTES OFFICE 55697 TRACIE [place] OUTPATIEN 3 3 T VISIT 15 MINUTES OFFICE 28596 MORENA OUTPATIEN 3 3 GWENDOLYN T VISIT 15 MINUTES OFFICE 66396 BRIA OUTPATIEN 3 3 DON T VISIT 15 MINUTES OFFICE 48582 SHOWER OUTPATIEN 2 2 WALTERS T VISIT 15 MINUTES EMERGENCY 55816 SAGE KUMARY 2 2 EMERGENCY JHON DEPARTMEN SERVICES T VISIT HIGH/URGE NT SEVERITY EMERGENCY 06121 GENESISWSOFI 2 2 W [facility] T VISIT MEDICAL MODERATE SEVERITY HOSPITAL SHANELL - 2 2 W [facility] T MEDICAL OFFICE 12258 SHOWER OUTPATIEN 2 2 WALTERS T VISIT 15 MINUTES OFFICE 93267 BRIA OUTPATIEN 2 2 DON T VISIT 25 MINUTES [facility]OSP[facility] - 2 2 W [facility] T MEDICAL OFFICE 51020 ENEDELIA Seymour OUTPATIEN 2 2 T VISIT 15 MINUTES INITIAL 22592 [facility] PREVENTIV 2 2 DON E MEDICINE NEW PT AGE 12-17 YR [facility] - 2 2 W [facility] T MEDICAL EMERGENCY 53606 SAGE SIMON 2 2 EMERGENCY DEPARTMEN SERVICES T VISIT MODERATE SEVERITY OFFICE 51762 LIVAS SAMMI LIVAS SAMMI OUTPATIEN 2 2 T VISIT 15 MINUTES OFFICE 58793 ENEDELIA Seymour OUTPATIEN 2 2 T VISIT 15 MINUTES OFFICE 50609 ENEDELIA Seymour OUTPATIEN 2 2 T VISIT 15 MINUTES OFFICE 33388 LIVAS SAMMI LIVAS SAMMI CONSULTAT 2 2 ION NEW/ESTAB PATIENT 60 MIN OFFICE 94537 ENEDELIA Seymour OUTPATIEN 2 2 T VISIT 15 MINUTES OFFICE 22264 ENEDELIA Seymour OUTPATIEN 2 2 T VISIT 15 MINUTES OFFICE 79007 ENEDELIA Seymour OUTPATIEN 2 2 T VISIT 15 MINUTES [facility] - 2 2 W OUTPATIEN REGIONAL T MEDICAL OFFICE 55759 ENEDELIA Seymour OUTPATIEN 2 2 T VISIT 15 MINUTES
--- OUTSIDE RECORDS SUMMARY | 2017-07-17 21:37 | External Medical Summary Rpt | CCD ---
Author Author , MARY HERNANDEZ Address Unknown Phone Care Team Providers Care Rehab Trainer Name Role Phone ALLERGY, ASTHMA & Unavailable [...] KID CARE P[facility], KID Unavailable Unavailable [facility] Un[facility] Un[facility] Unavailable Unavailable [facility] LIVAS SAMMI, LIVAS SAMMI Unavailable Unavailable LIVAS SAMMI, LIVAS SAMMI Unavailable Unavailable [facility], Unavailable Unavailable [facility] Unavailable Unavailable ASSOCIAT, [facility] Unavailable Unavailable SURGERY, [facility] Unavailable Unavailable MEDICAL, [facility] Unavailable Unavailable MEDICAL, [facility] DIAGNOST[facility] Unavailable Unavailable LAB [...] Diagnosis DOS Provider Status E162 HYPOGLYCEMI 05-17-2017 [facility] UNSPECIF[facility] MEDICAL K047 PERIAPICAL 05-17-2017 [facility] ABSCESS N EMERGENCY WITHOUT PHYS SINUS L239 ALLERGIC 05-17-2017 [facility] CONTACT PSC DERMATITIS UNSPECIFIED CAUSE Z789 OTHER 05-17-2017 [facility] SPECIFIED PSC HEALTH STATUS Z880 ALLERGY 05-17-2017 [place] STATUS TO REGIONAL PEN[place]ILLIN MEDICAL H5213 MYOPIA 03-22-2017 [facility] V15224 UNSPECIFIED 12-21-2016 [facility] ASTHMA REGIONAL UNCOMPLICAT MEDICAL ED K219 GASTRO-ESOP 12-21-2016 [facility] REFLUX REGIONAL DISEASE MEDICAL WITHOUT ESOPHAGITIS K811 CHRONIC 12-21-2016 [facility] CHOLECYSTIT GENERAL IS SURGERY K828 OTHER 12-21-2016 [facility] SPECIFIED REGIONAL DISEASES OF MEDICAL GALLBLADDER Z6829 BODY MASS 12-21-2016 [facility] INDEX BMI REGIONAL 29.0-29.9 MEDICAL ADULT Z720 TOBACCO USE 12-21-2016 [facility] MEDICAL R1084 GENERALIZED 11-29-2016 [facility] ABDOMINAL REGIONAL PAIN MEDICAL R110 NAUSEA 11-29-2016 [facility] R109 UNSPECIFIED 11-20-2016 [facility] PAIN ASSOCIAT R112 NAUSEA WITH 11-20-2016 [facility] UNSPECIFIED ASSOCIAT J309 ALLERGIC 08-06-2016 ALLERGY, RHINITIS ASTHMA & UNSPECIFIED IMMUNOLOGY I31841 ENCOUNTER 07-16-2016 [facility] CONTRACEPT DEVICE Z309 ENCOUNTER 07-16-2016 [facility] VE MANAGEMENT UNS [id number] PAIN IN 06-29-2016 [facility] LEFT ARM REGIONAL MEDICAL Z3040 ENCOUNTER 06-29-2016 [facility] FOR RADIOLOGY SURVEILLANC ASSOCIAT E CONTRACEPTI VES UNS B86 SCABIES 06-01-2016 [facility] P[facility] J3089 OTHER 06-01-2016 [facility] ALLERGIC PSC RHINITIS Z09367 OTHER 06-01-2016 [facility] ASTHMA PSC L2389 ALLERGIC 06-01-2016 [facility] CONTACT PSC DERMATITIS DUE TO OTHER AGENTS N898 OTHER 04-18-2016 MEDICAL SPECIFIED DIAGNOSTIC NONINFLAMMA LAB LLC TORY DISORDERS VAGINA W19051 ENCOUNTER 04-18-2016 MEDICAL JACKSPOOLER EXAM DIAGNOSTIC GENERAL RTN LAB LLC W/O [...] EMERGENCY OF UPPER PHYS ARM AND FOREARM 03265 UNS 01-27-2015 [facility] GASTRITIS&G PSC ASTRODUODIT IS W/O MENTION HEMORR 6260 ABSENCE OF 01-27-2015 [facility] MENSTRUATIO PSC N 4619 ACUTE 01-11-2015 [facility] SINUSITIS, PSC UNSPECIFIED V2540 UNSPECIFIED 07-28-2014 [facility] VE SURVEILLANC E 43973 ASTHMA 06-24-2014 [facility] UNSPECIFIED PSC WITH EXACERBATIO N V255 INSERTION 04-20-2013 LAWRENCE DIXON OF IMPLANTABLE SUBDERMAL CONTRACEPTI VE V242 ROUTINE 04-03-2013 HOGGE ROOPA FOLLOW-UP V258 OTHER 04-03-2013 HOGGE ROOPA SPECIFIED CONTRACEPTI VE MANAGEMENT 46921 POOR 02-26-2013 TRAC[facility] GROWTH MGMT MOTH ANTPRTM COND/COMP V270 OUTCOME OF 02-26-2013 [facility] DELIVERY SINGLE LIVEBORN 72983 ASTHMA, 02-24-2013 [facility] UNSPECIFIED REGIONAL , MEDICAL UNSPECIFIED STATUS 650 NORMAL 02-24-2013 [facility] KENNY DELIVERY 84013 POOR 02-24-2013 [facility] AFFECT MEDICAL MANAGEMENT MOTH DELIV 91636 OTH 02-24-2013 [facility] [place] [facility] CONDS AFFECT MANAGEMENT MOTH DELIV 10945 ABN FETL 02-24-2013 [facility] HRT REGIONAL RATE/RHYTHM MEDICAL DELIV W/WO ANTPRTM COND 27569 HIGH 02-24-2013 [facility] LACERATION MEDICAL WITH DELIVERY 06337 UTERINE 02-20-2013 [facility] SIZE DATE DISCREPANCY ANTPRTM COND/COMPL V220 SUPERVISION 02-20-2013 [facility] OF NORMAL FIRST V2383 SUPERVISION 02-20-2013 [facility] HIGH-RISK PG YOUNG PRIMIGRAVID A V284 02-20-2013 [facility] SCR GROWTH RETARDATION USING US 6259 UNSPEC 02-06-2013 [facility] W/FEMALE GENITAL ORGANS V286 SCREENING 02-06-2013 MORENA GWENDOLYN OF STREPTOCOCC US B 4779 ALLERGIC 02-03-2013 LIVAS SAMMI RHINITIS CAUSE UNSPECIFIED 01340 OTHER 02-03-2013 LIVAS SAMMI DISEASES OF NASAL CAVITY AND SINUSES V061 NEED PROPH 01-22-2013 SHOWER WALTERS VAC W/COMB DIPHTH-TETA NUS-PERTUSS VAC 0419 BACTERIAL 01-21-2013 ALLA CARNES INFECTION UNSPECIFIED CCE & UNS SITE 66472 UNSPECIFIED 01-21-2013 ALLA CARNES VAGINITIS AND VULVOVAGINI TIS 89652 UNSPECIFIED 01-21-2013 ALLA CARNES ABNORMALITY OF LABOR ANTEPARTUM V6545 COUNSELING 01-08-2013 ALLA CARNES OTHER SEXUALLY TRANSMITTED DISEASES V2889 OTHER 12-12-2012 TRACIEBipin [place] SPECIFIED SCREENING V2881 ENCOUNTER 10-17-2012 B[facility] DOBBS FOR ANATOMIC SURVEY 3829 UNSPECIFIED 09-07-2012 [facility] OTITIS REGIONAL MEDIA MEDICAL 6268 OTH D/O 08-12-2012 [facility] MENSTRUATIO N&OTH ABN BLEED FE GNT TRACT V0481 NEED 08-12-2012 [facility] PROPHYLACTI C VACCINATION &INOCULATIO N FLU V7242 08-12-2012 [facility] EXAMINATION OR TEST POSITIVE RESULT 69514 WHEEZING 07-15-2012 [facility] 7862 COUGH 07-15-2012 [facility] 490 BRONCHITIS 07-08-2012 MCDANIELS G NOT SPECIFIED ACUTE OR CHRONIC V7231 ROUTINE 05-05-2012 [facility] GYNECOLOGIC AL EXAMINATION V7388 SPECIAL SCR 05-05-2012 [facility] DON EXAMINATION OTH SPEC CHLAMYDIAL DZ V745 SCREENING 05-05-2012 [facility] DOBBS EXAMINATION FOR VENEREAL DISEASE 920 CONTUSION 04-28-2012 CLARK KER OF FACE SCALP AND NECK EXCEPT EYE E9179 OTHER 04-28-2012 [facility] KER STRIKING AGAINST W/WO SUBSEQUENT FALL 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 MA 5% CY OI #5 NT 71 ME NT PHILLIPS 00 05 06 3. 21 00 NH Ac LA 37 -0 -0 00 00 L- ti NE 83 4- 9- 0 07 MA ve 34 20 20 86 RT PA 05 17 17 21 TC 3 60 PH H AR MA CY #1 56 9 PHILLIPS 00 04 05 3. 21 00 NH Ac LA 37 -0 -1 00 00 L- ti NE 83 6- 2- 0 07 MA ve 34 20 20 86 RT PA 05 17 17 21 TC 3 60 PH H AR MA CY #1 56 9 CL 00 04 05 21 7 00 NH Ac IN 59 -1 -1 .0 00 [...] -A 1 31 CY CE TA #0 OR 23 NO 32 PH EN 5- 32 5 ## 03 04 60 30 00 NH Ac ## -2 -2 .0 00 L- [...] PHILLIPS 00 02 03 3. 21 00 NH Ac LA 37 -0 -1 00 00 [...] Procedure DOS Code Location Performer Comment HEMOGLOBI 24886 [facility] ME[facility] N 7 W W GLYCOSYLA [facility] RADHA A1C MEDICAL MEDICAL COLLECTIO 48903 [facility] N VENOUS 7 W W BLOOD [facility] VENIPUNCT MEDICAL MEDICAL URE COMPREHEN 69470 [facility] MEAD[facility] SIVE 7 W W METABOLIC [facility] [place] [address] [facility] ME[facility] INSULIN 7 W W TOTAL [facility] MEDICAL LENS V2784 LENIN ZUNIGA POLYCARBO 7 OPTICAL MATT OR EQUAL ANY INDEX PER LENS FITTING 71803 LENIN ZUNIGA SPECTACLE 7 OPTICAL S XCPT APHAKIA MONOFOCAL FRAMES V2020 LENIN ZUNIGA PURCHASES 7 OPTICAL SPHERE V2101 LENIN ZUNIGA SINGLE 7 OPTICAL VISION +/- 4.12 +/- 7.00D PER LENS SCRATCH V2760 LENIN ZUNIGA RESISTANT 7 OPTICAL COATING PER LENS OPHTH 39767 BLU BLU MEDICAL 7 XM&EVAL COMPRE NEW PT 1/> VST DETERMINA 14380 BLU BLU TION 7 REFRACTIV E STATE URINE 69147 [facility] 7 W W TEST [facility] VISUAL [facility] MEDICAL COLOR CMPRSN METHS LEVEL III 24006 CONWSOFI [facility] SURG 7 W W PATHOLOGY [...] TO MEDICAL MEDICAL 1000 CC LAPS SURG 57661 GENESISWSOFI SPADY 7 W GENERAL CHOLECYST SURGERY ECTOMY W/CHOLANG IOGRAPHY CHOLANGIO 95368 [facility] GRAPHY&/P 7 ANCREATOG RADIOLOGY [place] [facility] NTRAOP [...] REGIONAL REGIONAL 0.1 MG MEDICAL MEDICAL ANES 92510 [facility]ON[facility] JAMES INTRAPERI 7 LTH TONEAL ANESTHESI UPPER A PSC ABDOMEN W/LAPS NOS RAD EXP G9500 [facility] INDICES/E 7 XP TM & RADIOLOGY NUMB ASSOCIAT FLUORO IMAGES DOC TECHNETIU A9537 SHANELL REECE M TC-99M 7 W W MEBROFENI REGIONAL REGIONAL N DX UP MEDICAL MEDICAL TO 15 MCI HEPATOBIL 99047 [facility] SYST 7 IMAG INC RADIOLOGY GB ASSOCIAT W/PHARMA INTERVENJ INJECTION J2805 SHANELL MEADOWVIE 7 W W SINCALIDE REGIONAL REGIONAL [address] [place] [address] [facility] ME[facility]OW[facility] ABDOMINAL 7 W W REAL REGIONAL REGIONAL TIME MEDICAL MEDICAL W/IMAGE LIMITED FINAL G9551 NIYAHDECLAN GEORGE REPR ABD 7 IMAG STS RADIOLOGY W/O ASSOCIAT INCIDNT FND LES NTD: PREPJ& 00959 ALLERGY, LIVAS SAMMI ALLERGEN 6 ASTHMA & IMMUNOTHE IMMUNOLOG RAPY Y 1/PERIOPERATIVE TECH ANTIGEN REMOVAL 16802 [facility] [place] [facility] NON-BIODE 6 [facility] DELIVERY IMPLANT RADEX 83347 [facility] HUMERUS 6 EIDER DANETTE MINIMUM 2 RADIOLOGY VIEWS ASSOCIAT PREPJ& 92135 ALLERGY, LIVAS SAMMI ALLERGEN 6 ASTHMA & IMMUNOTHE IMMUNOLOG RAPY Y 1/PERIOPERATIVE TECH ANTIGEN IADNA 82464 MEDICAL MEDICAL NILDA 6 DIAGNOSTI DIAGNOSTI SPECIES C LAB LLC C LAB LLC AMPLIFIED PROBE TQ IADNA 05516 MEDICAL MEDICAL GARDNEREL 6 DIAGNOSTI DIAGNOSTI LA C [facility] VAGINALIS AMPLIFIED PROBE TQ IADNA 24689 MEDICAL MEDICAL CHLAMYDIA 6 DIAGNOSTI DIAGNOSTI C [facility] TRACHOMAT IS AMPLIFIED PROBE TQ IADNA 97587 MEDICAL MEDICAL TRICHOMON 6 DIAGNOSTI DIAGNOSTI [facility] VAGINALIS AMPLIFIED PROBE TECH IADNA NOS 56989 MEDICAL MEDICAL 6 DIAGNOSTI DIAGNOSTI AMPLIFIED C LAB [facility] C LAB LLC PROBE TQ EACH ORGANISM IADNA 10425 MEDICAL MEDICAL NEISSERIA 6 DIAGNOSTI DIAGNOSTI [facility] C LAB LLC GONORRHOE AE AMPLIFIED PROBE TQ PREPJ& 22394 ALLERGY, LIVAS SAMMI ALLERGEN 6 ASTHMA & IMMUNOTHE IMMUNOLOG RAPY Y 1/PERIOPERATIVE TECH ANTIGEN PREPJ& 69705 ALLERGY, LIVAS SAMMI ALLERGEN 6 ASTHMA & IMMUNOTHE IMMUNOLOG RAPY Y 1/PERIOPERATIVE TECH ANTIGEN PREPJ& 17955 ALLERGY, LIVAS SAMMI ALLERGEN 6 ASTHMA & IMMUNOTHE IMMUNOLOG RAPY Y 1/PERIOPERATIVE TECH ANTIGEN PREPJ& 80131 ALLERGY, LIVAS SAMMI ALLERGEN 5 ASTHMA & IMMUNOTHE IMMUNOLOG RAPY Y 1/PERIOPERATIVE TECH ANTIGEN [facility] 6[facility] ALLERGY, DOUGLAS W/VC 5 ASTHMA & ROS EXPIRATOR IMMUNOLOG Y ISIDRA Y W/WO MXML VOL VNTJ PROF SVCS 83001 K[facility] CARE MCDANIELS ALLG 5 PSC GAR IMMNTX X W/PRV ALLGIC XTRCS 1 NJX PREPJ& 43462 ALLERGY, LIVAS SAMMI ALLERGEN 5 ASTHMA & IMMUNOTHE IMMUNOLOG RAPY Y 1/PERIOPERATIVE TECH ANTIGEN PERCUTANE 62875 ALLERGY, DOUGLAS OUS TESTS 5 ASTHMA & ROS IMMUNOLOG W/ALLERGE Y DARYN EXTRACTS SCRATCH V2760 [facility] RESISTANT 5 ADA ADA COATING PER LENS LENS V2784 [facility] POLYCARBO 5 ADA ADA MATT OR EQUAL ANY INDEX PER LENS FRAMES V2020 [facility] PURCHASES 5 ADA ADA SPHERE V2101 [facility] SINGLE 5 ADA ADA VISION +/- 4.12 +/- 7.00D PER LENS FITTING 87734 [facility] SPECTACLE 5 ADA ADA S XCPT APHAKIA MONOFOCAL OPHTH 37733 [facility] 5 CHRISS CHRISS XM&EVAL COMPRHNSV ESTAB PT 1/> INCISION 49662 [facility] & 5 [place] SHIREEN DRAINAGE EMERGENCY ABSCESS PHYS COMPLICAT ED/MULTIP LE URINE 56624 [facility] CARE ENEDELIA 5 PSC GAR TEST V[place] [address] [facility] HPYLORI 5 W W [facility] RPR&REFIT 78326 MERARY REAGAN G 4 ADA ADA SPECTACLE [...] 4 OPTICAL ADA COATING PER LENS FITTING 19669 CHRISTINEERICAALYSA MERARY SPECTACLE 4 OPTICAL ADA S XCPT APHAKIA MONOFOCAL OPHTH 81981 AWOSI AWOSIKA MEDICAL 4 CHRISS CHRISS XM&EVAL COMPRHNSV ESTAB PT 1/> ETONOGEST J7307 LAWRNECE DIXON LAWRENCE DIXON REL 3 CNTRACPT IMPL SYS INCL IMPL & SPL INSJ 67704 LAWRENCE DIXON [facility]IX[facility] NON-BIODE 3 GRADABLE DRUG DELIVERY IMPLANT URINE 19056 LAWRENCE DIXON LAWRENCE DIXON 3 TEST VISUAL COLOR CMPRSN METHS POSTPARTU 09492 [facility] 3 ONLY SEPARATE PROCEDURE [facility] 90398 TRACIE HILLY [facility] DISCHARGE 3 DAY MANAGEMEN T 30 MIN/< SBSQ 63134 TRACIE [place] [facility] 3 CARE/DAY 15 MINUTES LEVEL V 94449 [facility] [place] SURG 3 [place] INC HEN PATHOLOGY GROSS&AGUS ROSCOPIC EXAM VAGINAL 93635 [facility] DELIVERY 3 ONLY NEURAXIAL 30209 HURST KENNY HURST KENNY LABOR 3 ANALG/ANE S PLND VAGINAL DELIVERY INDUCTION 7301 MEAD[facility] MEADOWVIE LABOR 3 W W ARTIFICIA REGIONAL REGIONAL L RUPTURE MEDICAL MEDICAL MEMBRANES OTHER 7359 MEADOW[facility]IE MEAWVIE MANUALLY 3 W W ASSISTED REGIONAL REGIONAL DELIVERY MEDICAL MEDICAL URNLS DIP 95493 [facility] 3 STICK/TAB LET RGNT NON-AUTO W/O MICRSCP 42191 [facility] NONSTRESS 3 TEST US PREG 68922 [facility] UTERUS 3 REAL TIME F/U TRNSABDL PER FETUS URNLS DIP 06257 [facility] TR[facility]IE [facility] 3 STICK/TAB LET RGNT NON-AUTO W/O MICRSCP URNLS DIP 78103 MORENA MORENA 3 GWENDOLYN GWENDOLYN STICK/TAB LET RGNT NON-AUTO W/O MICRSCP IADNA 01215 [facility] NEISSERIA 3 DIAGNOSTI DIAGNOSTI CS CS GONORRHOE AE AMPLIFIED PROBE TQ IADNA 88863 [facility] CHLAMYDIA 3 DIAGNOSTI DIAGNOSTI CS CS TRACHOMAT IS AMPLIFIED PROBE TQ CUL 93733 SHANELL REECE PRSMPTV [address] [facility] MEDICAL MEDICAL SCRN W/COLONY ESTIMJ NITRIC 31875 LIVAS SAMMI LIVAS SAMMI OXIDE 3 GAS DETERMINA TION SPMTRY 94739 LIVAS SAMMI LIVAS SAMMI W/VC 3 EXPIRATOR Y ISIDRA W/WO MXML VOL VNTJ URNLS DIP 54978 SHOWER SHOWER 3 WALTER[facility] WALTERS STICK/TAB LET RGNT NON-AUTO W/O MICRSCP EVAL C/V 90597 SHANELL REECE AMNIOTIC 3 W W [facility] PROTEIN MEDICAL MEDICAL QUAL [facility] G0378 SHANELL REECE OBSERVATI 3 W W ON [facility] SERVICE MEDICAL MEDICAL PER HOUR URNLS DIP 35243 SHANELL HURTADOWSOFI 3 W W STICK/TAB [facility] LET MEDICAL MEDICAL REAGENT AUTO MICROSCOP Y SMR PRIM 01314 SHANELL REECE SRC WET 3 W W [facility] NFCT AGT MEDICAL MEDICAL 89329 SHANELL REECE NONSTRESS 3 W W TEST [facility] MEDICAL MEDICAL IADNA 87571 MEDICAL MEDICAL GARDNEREL 3 DIAGNOSTI DIAGNOSTI LA C LAB [facility] C LAB LLC VAGINALIS AMPLIFIED PROBE TQ IADNA 10923 MEDICAL MEDICAL CHLAMYDIA 3 DIAGNOSTI DIAGNOSTI C LAB LLC C LAB LLC TRACHOMAT IS AMPLIFIED PROBE TQ IADNA 51983 MEDICAL MEDICAL NEISSERIA 3 DIAGNOSTI DIAGNOSTI C [facility] C LAB LLC GONORRHOE AE AMPLIFIED PROBE TQ IADNA NOS 68821 MEDICAL MEDICAL 3 DIAGNOSTI DIAGNOSTI AMPLIFIED C LAB LLC C LAB LLC PROBE TQ EACH ORGANISM PREPJ& 97139 LIVAS SAMMI LIVAS SAMMI ALLERGEN 3 IMMUNOTHE RAPY 1/PERIOPERATIVE TECH ANTIGEN URNLS DIP 71683 TRACIE OTILIA TRACIE [facility] 3 STICK/TAB LET RGNT NON-AUTO W/O MICRSCP URNLS DIP 34680 TRACIE TOILIA TRACIE OTILIA 3 STICK/TAB LET RGNT NON-AUTO W/O MICRSCP US PREG 16911 [facility] UTERUS 3 REAL TIME F/U TRNSABDL PER FETUS GLUCOSE 51568 [facility] TOLERANCE 3 DIAGNOSTI DIAGNOSTI TEST GTT CS CS 3 SPECIMENS URNLS DIP 39967 MORENA MORENA 3 GWENDOLYN GWENDOLYN STICK/TAB LET RGNT NON-AUTO W/O MICRSCP PREPJ& 64767 LIVAS SAMMI LIVAS SAMMI ALLERGEN 3 IMMUNOTHE RAPY 1/PERIOPERATIVE TECH ANTIGEN US PREG 96325 BRIA BRIA UTERUS 3 DON DON W/DETAIL MARQUEZ 1ST GESTATION URNLS DIP 65651 BRIA BRIA 3 DON DON STICK/TAB LET RGNT NON-AUTO W/O MICRSCP URNLS DIP 87555 SHOWER SHOWER 2 WALTERS WALTERS STICK/TAB LET RGNT NON-AUTO W/O MICRSCP IADNA 39901 MEDICAL MEDICAL NEISSERIA 2 DIAGNOSTI DIAGNOSTI C LAB LLC C LAB LLC GONORRHOE AE AMPLIFIED PROBE TQ IADNA 55539 MEDICAL MEDICAL CHLAMYDIA 2 DIAGNOSTI DIAGNOSTI C LAB [facility] C LAB LLC TRACHOMAT IS AMPLIFIED PROBE TQ PRESSURIZ 81908 SHANELL REECE ED/NONPRE 2 W W SSURIZED [facility] INHALATIO MEDICAL MEDICAL N TREATMENT COLLECTIO 05848 SHOWER SHOWER N VENOUS 2 [place] [address] SHOWER SHOWER 2 WALTERS WALTERS UTERUS 14 WK TRANSABDL GESTAT PREPJ& 53664 LIVAS SAMMI LIVAS SAMMI ALLERGEN 2 IMMUNOTHE RAPY 1/PERIOPERATIVE TECH ANTIGEN URINE 82067 BRIA BRIA 2 DON DON TEST VISUAL COLOR CMPRSN METHS PROF SVCS 22251 ENEDELIA MCDANIELS G ALLG 2 IMMNTX X W/PRV ALLGIC XTRCS 1 NJX RADIOLOGI 10-16-201 16998 [facility] EXAM 2 JW CHEST 2 RADIOLOGY VIEWS ASSOCIAT FRONTAL&L ATERAL PROF [facility] 87272 ENEDELIA Seymour ALLG 2 IMMNTX X W/PRV ALLGIC XTRCS 1 NJX PROF [facility] 34715 ENEDELIA Seymour ALLG 2 IMMNTX X W/PRV ALLGIC XTRCS 1 NJX PROF [facility] 91270 ENEDELIA Seymour ALLG 2 IMMNTX X W/PRV ALLGIC XTRCS NJXS PREPJ& 19566 LIVAS SAMMI LIVAS SAMMI ALLERGEN 2 IMMUNOTHE RAPY 1/PERIOPERATIVE TECH ANTIGEN PROF [facility] 98621 ENEDELIA Seymour ALLG 2 IMMNTX X W/PRV ALLGIC XTRCS 1 NJX PROF [facility] 65507 ENEDELIA Seymour ALLG 2 IMMNTX X W/PRV ALLGIC XTRCS 1 NJX PROF [facility] 56487 ENEDELIA Seymour ALLG 2 IMMNTX X W/PRV ALLGIC XTRCS 1 NJX PROF [facility] 54548 ENEDELIA Seymour ALLG 2 IMMNTX X W/PRV ALLGIC XTRCS 1 NJX PROF [facility] 92360 ENEDELIA Seymour ALLG 2 IMMNTX X W/PRV ALLGIC XTRCS 1 NJX IADNA 16749 [facility] NEISSERIA 2 DIAGNOSTI DIAGNOSTI CS CS GONORRHOE AE AMPLIFIED PROBE TQ GONADOTRO 56117 [facility] PIN 2 DIAGNOSTI DIAGNOSTI CHORIONIC CS CS QUANTITAT ILAN IADNA 12345 [facility] CHLAMYDIA 2 DIAGNOSTI DIAGNOSTI CS CS TRACHOMAT IS AMPLIFIED PROBE TQ URINE 18367 BRIA BRIA 2 DON DON TEST VISUAL COLOR CMPRSN METHS PROF [facility] 12677 ENEDELIA Seymour ALLG 2 IMMNTX X W/PRV ALLGIC XTRCS 1 NJX RADEX 04906 CLARK KER CLARK KER NASAL 2 BONES COMPLETE MINIMUM 3 VIEWS PROF [facility] 23353 ENEDELIA Seymour ALLG 2 IMMNTX X W/PRV ALLGIC XTRCS 1 NJX PROF [facility] 09632 ENEDELIA MCDANIELS Lion ALLG 2 IMMNTX X W/PRV ALLGIC XTRCS 1 NJX PREPJ& 82833 LIVAS SAMMI LIVAS SAMMI ALLERGEN 2 IMMUNOTHE RAPY 1/PERIOPERATIVE TECH ANTIGEN PROF [facility] 43984 ENEDELIA MCDANIELS Lion ALLG 2 IMMNTX X W/PRV ALLGIC XTRCS 1 NJX DETERMINA 32517 AWOSIKA AWOSIKA TION 2 CHRISS CHRISS REFRACTIV E STATE OPHTH 55529 AWOSIKA AWOSIKA MEDICAL 2 CHRISS CHRISS XM&EVAL COMPRE NEW PT 1/> VST NITRIC 03082 LIVAS SAMMI LIVAS SAMMI OXIDE 2 GAS DETERMINA TION SPMTRY 42721 LIVAS SAMMI LIVAS SAMMI W/VC 2 EXPIRATOR Y ISIDRA W/WO MXML VOL VNTJ PROF [facility] 77898 ENEDELIA MCDANIELS Lion ALLG 2 IMMNTX X W/PRV ALLGIC XTRCS 1 NJX PROF [facility] 56074 ENEDELIA MCDANIELS Lion ALLG 2 IMMNTX X W/PRV ALLGIC XTRCS 1 NJX PROF [facility] 77616 ENEDELIA MCDANIELS Lion ALLG 2 IMMNTX X W/PRV ALLGIC XTRCS 1 NJX PROF [facility] 08690 ENEDELIA MCDANIELS Lion ALLG 2 IMMNTX X W/PRV ALLGIC XTRCS 1 NJX PREPJ& 44781 LIVAS SAMMI LIVAS SAMMI ALLERGEN 2 IMMUNOTHE RAPY 1/PERIOPERATIVE TECH ANTIGEN NITRIC 18490 LIVAS SAMMI LIVAS SAMMI OXIDE 2 GAS DETERMINA TION DEMO&/MEI 87487 LIVAS SAMMI LIVAS SAMMI L OF PT 2 UTILIZ AERSL GEN/NEB/I NHLR/IP PERCUTANE 06507 LIVAS SAMMI LIVAS SAMMI OUS TESTS 2 W/ALLERGE DARYN EXTRACTS BRNCDILAT 09498 LIVAS SAMMI LIVAS SAMMI RSPSE 2 SPMTRY PRE&POST- BRNCDILAT ADMN DEMO&/MEI 56849 ENEDELIA Lion ENEDELIA Lion L OF PT 2 UTILIZ AERSL GEN/NEB/I NHLR/IP RADEX 44075 SHANELL REECE FOOT 2 W W COMPLETE REGIONAL REGIONAL MINIMUM 3 MEDICAL MEDICAL VIEWS IAADIADOO 04935 ENEDELIA MCDANIELS Lion 2 STREPTOCO CCUS GROUP A Encounters Encounter Start End Date Code Location Performer Type Date [facility] 61449 [facility] ENEDELIA OUTPATIEN 7 7 PSC T VISIT 15 MINUTES EMERGENCY 60681 GENESISWVIE 7 7 W [facility] T VISIT MEDICAL MODERATE SEVERITY OFFICE 09264 KID CARE ENEDELIA OUTPATIEN 7 7 PSC T [facility]ISIT 15 MINUTES [facility] SHANE[facility] PADRON OUTPATIEN 7 7 W GENERAL T NEW 45 SURGERY [facility]84 KID CARE TY OUTPATIEN 7 7 PSC T VISIT 15 MINUTES OFFICE 02875 [place] OUTPATIEN 6 6 FAMILY DEYVI T NEW 20 HEALTH MINUTES [facility]ANE[facility] 6 [facility] 02711 KID CARE MCDANIELS OUTPATIEN 6 6 PSC GAR T VISIT 15 MINUTES OFFICE 59064 ALLERGY, DOUGLAS OUTPATIEN 5 5 ASTHMA & ROS T VISIT IMMUNOLOG 15 Y MINUTES OFFICE 09019 ALLERGY, DOUGLAS OUTPATIEN 5 5 ASTHMA & ROS T VISIT IMMUNOLOG 25 Y MINUTES OFFICE 59835 [facility]ARE MCDANIELS OUTPATIEN 5 5 PSC GAR T VISIT 15 MINUTES OFFICE 67022 KID CARE TY OUTPATIEN 5 5 PSC ROBE T VISIT 15 MINUTES EMERGENCY 32197 [facility] BRI[facility] 5 5 [place] SHIREEN DEPARTMEN EMERGENCY T VISIT PHYS MODERATE SEVERITY OFFICE 59487 KID CARE MCDANIELS OUTPATIEN 5 5 PSC GAR T VISIT 15 MINUTES HOSPITAL MEAWVIE - 5 5 W OUTPATI REGIONAL T MEDICAL OFFICE 49743 KID CARE MCDANIELS OUTPATIEN 5 5 PSC GAR T VISIT 25 MINUTES OFFICE 86163 [place] R[place] OUTPATIEN 4 4 PRIMARY HODAN T VISIT CARE 15 CENTER MINUTES OFFICE 13642 KID CARE MCDANIELS OUTPATIEN 4 4 PSC GAR T VISIT 25 MINUTES HOSPITAL MEADOWVIE - 3 3 W INPATIENT REGIONAL MEDICAL OFFICE 69421 TRACIE OTILIA OUTPATIEN 3 3 T VISIT 15 MINUTES OFFICE 12141 TRACIE [place] OUTPATIEN 3 3 T VISIT 15 MINUTES OFFICE 50114 MORENA OUTPATIEN 3 3 GWENDOLYN T VISIT 15 MINUTES [facility] 25064 LIVAS SAMMI LIVAS SAMMI OUTPATIEN 3 3 T VISIT 15 MINUTES OFFICE 56537 SHOWER OUTPATIEN 3 3 WALTERS T VISIT 15 MINUTES [facility] ME[facility]OW[facility] 38610 TRACIE [place] OUTPATIEN 3 3 T VISIT 15 MINUTES OFFICE 64322 TRACIE [place] OUTPATIEN 3 3 T VISIT 15 MINUTES OFFICE 25254 MORENA OUTPATIEN 3 3 GWENDLOYN T VISIT 15 MINUTES OFFICE 91126 BRIA OUTPATIEN 3 3 DON T VISIT 15 MINUTES OFFICE 16867 SHOWER OUTPATIEN 2 2 WALTERS T VISIT 15 MINUTES EMERGENCY 74660 SAGE KUMARY 2 2 EMERGENCY JHON DEPARTMEN SERVICES T VISIT HIGH/URGE NT SEVERITY EMERGENCY 40273 GENESISWSOFI 2 2 W [facility] T VISIT MEDICAL MODERATE SEVERITY [facility] - 2 2 W [facility] T MEDICAL OFFICE 70963 [facility]OWER OUTPATIEN 2 2 WALTERS T VISIT 15 MINUTES OFFICE 79693 BRIA OUTPATIEN 2 2 DON T VISIT 25 MINUTES [facility]OSP[facility] - 2 2 W [facility] T MEDICAL OFFICE 48694 ENEDELIA Seymour OUTPATIEN 2 2 T VISIT 15 MINUTES INITIAL 35496 BRIA PREVENTIV 2 2 DON E MEDICINE NEW PT AGE 12-17 YR [facility] - 2 2 W [facility] T MEDICAL EMERGENCY 36171 SAGE SIMON 2 2 EMERGENCY DEPARTMEN SERVICES T VISIT MODERATE SEVERITY OFFICE 93651 LIVAS SAMMI LIVAS SAMMI OUTPATIEN 2 2 T VISIT 15 MINUTES OFFICE 73223 ENEDELIA Seymour OUTPATIEN 2 2 T VISIT 15 MINUTES OFFICE 14207 ENEDELIA Seymour OUTPATIEN 2 2 T VISIT 15 MINUTES OFFICE 64020 LIVAS SAMMI LIVAS SAMMI CONSULTAT 2 2 ION NEW/ESTAB PATIENT 60 MIN OFFICE 10928 ENEDELIA Seymour OUTPATIEN 2 2 T VISIT 15 MINUTES OFFICE 86397 ENEEDLIA Seymour OUTPATIEN 2 2 T VISIT 15 MINUTES OFFICE 38057 ENEDELIA Seymour OUTPATIEN 2 2 T VISIT 15 MINUTES [facility] - 2 2 W OUTPATIEN REGIONAL T MEDICAL OFFICE 75618 ENEDELIA Seymour OUTPATIEN 2 2 T VISIT 15 MINUTES
--- OUTSIDE RECORDS SUMMARY | 2017-07-17 21:38 | External Medical Summary Rpt ---
Author Author MARY Haines, [employer] Organization [employer] Address Unknown Phone Unavailable
--- OUTSIDE RECORDS SUMMARY | 2017-07-17 21:38 | External Medical Summary Rpt | CCD ---
Author Author , MARY Organization MARY Address Unknown Phone [email or web address] Immunization Name Date Rout CVX Reac Dose Comm Prov Is Faci e tion ent ider Refu lity Give sed n Tdap 04-2 115 999 Hist FQ11 No FQ11 , 5-20 oric Adso 13 al rbed Info rmat ion - Sour ce Unsp ecif ied Infl 11-1 140 999 Hist FQ11 No FQ11 uenz 3-20 oric a, 12 al P-Fr Info ee rmat ion - Sour ce Unsp ecif ied MMR 07-2 3 999 Hist H112 No H112 0-20 oric 00 al Info rmat ion - Sour ce Unsp ecif ied Dax 07-2 10 999 Hist H112 No H112 o-IP 0-20 oric V 00 al Info rmat ion - Sour ce Unsp ecif ied Vari 07-2 21 999 Hist H112 No H112 cell 0-20 oric a 00 al Info rmat ion - Sour ce Unsp ecif ied DTaP 07-2 107 999 Hist H112 No H112 , UF 0-20 oric 00 al Info rmat ion - Sour ce Unsp ecif ied Hib, 11-1 17 999 Hist H181 No H181 UF 9-19 oric 97 al Info rmat ion - Sour ce Unsp ecif ied MMR 11-1 3 999 Hist H181 No H181 9-19 oric 97 al Info rmat ion - Sour ce Unsp ecif ied DTaP 11-1 107 999 Hist H181 No H181 , UF 9-19 oric 97 al Info rmat ion - Sour ce Unsp ecif ied Hep 07-1 8 999 Hist H181 No H181 B, 5-19 oric ped/ 97 al adol Info rmat ion - Sour ce Unsp ecif ied DTP- 01-1 22 999 Hist H181 No H181 Hib 6-19 oric 97 al Info rmat ion - Sour ce Unsp ecif ied Dax 01-1 10 999 Hist H181 No H181 o-IP 6-19 oric V 97 al Info rmat ion - Sour ce Unsp ecif ied Dax 12-0 10 999 Hist H181 No H181 o-IP 2-19 oric V 96 al Info rmat ion - Sour ce Unsp ecif ied DTP- 12-0 22 999 Hist H181 No H181 Hib 2-19 oric 96 al Info rmat ion - Sour ce Unsp ecif ied DTP- 09-1 22 999 Hist H181 No H181 Hib 6-19 oric 96 al Info rmat ion - Sour ce Unsp ecif ied Hep 09-1 45 999 Hist H181 No H181 B, 6-19 oric UF 96 al Info rmat ion - Sour ce Unsp ecif ied Dax 09-1 10 999 Hist H181 No H181 o-IP 6-19 oric V 96 al Info rmat ion - Sour ce Unsp ecif ied
--- OUTSIDE RECORDS SUMMARY | 2017-07-17 21:38 | External Medical Summary Rpt | CCD ---
Author Author , MARY Organization MARY Address Unknown Phone [email or web address] Immunization Name Date Rout CVX Reac Dose [...]
[2017-07-17] MEDS ORDERED: PREDNISONE 20MG20 MG PO (21:58)
--- NOTE | 2017-07-17 21:59 | Emergency Room Report ---
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 N Clinical Suspician of Infection? N Mental Status: 1 - Regular (Normal Baseline) Sepsis Risk:Low Sepsis Risk Have you (or family members/close friends) recently traveled outside the [place]? N If Yes, where/when: Have you had exposure to infectious disease within the past month? N TB? Other? Specify: Source patient, RN notes reviewed, family, old records Exam Limitations no limitations Comment lifting heavy trash at work with pain to lt wrist - was sen by pcp and had neg xray but has pain and swelling still Cardiac Chest Pain Chest pain indicative of cardiac No Timing/Duration this evening Severity moderate ALLERGIES Coded Allergies: Penicillins (Mild, 07/17/17) Home Medications Reported Medications No Known Home Medications History Medical History General CAD? No Angina: No [place]: No Hypertension? No Hyperlipidemia? No CHF? No DVT? No PE? No COPD? No Asthma? No Anemia? No GERD? No Gastric ulcers? No GI Bleed? No Hernia? No Thyroid Problems? No Hypothyroidism? No CVA? No Seizures? No Diabetes? No Renal Insuffiency? No End Stage Renal Disease? No UTI? No Stones? No BPH? No GB Disease: No Nephritic Syndrome? No Asplenia? No Hepatitis? No Sickle Cell Disease? No Arthritis? No Migraines? No Cataracts? No Glaucoma? No MRSA? No HIV? No TB? No Anxiety? No Depression? No Cancer? No More? 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 Respiratory denies cough, denies shortness of breath, denies wheezing Cardiovascular denies chest pain, denies syncope Gastrointestinal denies abdominal pain, denies diarrhea, denies vomiting Genitourinary denies: dysuria, frequency, hesitancy, hematuria. Musculoskeletal see HPI, denies back pain, joint pain, joint swelling, denies neck pain Skin denies rash Psychiatric/Neurological denies headache, denies seizure Physical Exam Vital Signs Vital Signs Date Time Temp Pulse Resp B/P Pulse O2 O2 Flow FiO2 Ox Delivery Rate 07/17 2123 98.1 85 16 137/80 98 - WBC >12,000 or <4,000 or 10% bands? 2 or more SIRS Criteria Met? B/P:137/80 MAP:99 Creatinine >2.0? UA output<0.5ml/kg/hr for 2 hrs? Platelet count >100,000? Lactate >2.0mmol/1? INR >1.2 or PTT > than 60 sec? Evidence of Organ Dysfunction? Provider documented clinical suspician of infection? N Sepsis Criteria Count: 0 Sepsis Risk: Low Sepsis Risk General Appearance no apparent distress Eye Exam - bilateral eye PERRL, bilateral eye EOMI Ear, Nose, Throat normal ENT inspection Neck supple Respiratory Status No: respiratory distress. 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 No Departure Departure Time of Disposition 2150 Disposition DC Home or Self Care(routine) Clinical Impression Primary Impression: Left wrist sprain Qualifiers: Encounter type: initial encounter Qualified Code: S63.502A - Unspecified sprain of left wrist, initial encounter Secondary Impressions: Tenosynovitis Condition STABLE Referrals CHRIS MCDANIELS (Family) Patient Instructions DI for Tenosynovitis Additional Instructions use meds and see pcp for follow up and wear splint Discharge Counseling Counseled pt/family regarding diagnosis, test results, medications/RX, follow up needs Prescriptions Current Visit Scripts Prednisone (Prednisone 20MG) 20 MG PO BID #10 TAB ED Critical Care Critical Care No Comments old records obtained at [id number]
--- NOTE | 2017-07-17 21:59 | Emergency Room Report ---
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 PAIN HAS NOT GOTTEN ANY BETTER Onset of symptoms date/time:/ or onset unknown for:MEDICAL HX UNKNOWN Treatment Prior to Arrival: EDUCATION SPEC Provided by: Sepsis Risk Assessment: Temp: 98.1 B/P: 137/80 MAP: 99 Pulse: 85 Resp: 16 Recent fever? N Clinical Suspician of Infection? N Mental Status: 1 - Regular (Normal Baseline) Sepsis Risk:Low Sepsis Risk Have you (or family members/close friends) recently traveled outside the [place]? N If Yes, where/when: Have you had exposure to infectious disease within the past month? N TB? Other? Specify: Source patient, RN notes reviewed, family, old records Exam Limitations no limitations Comment lifting heavy trash at work with pain to lt wrist - was sen by pcp and had neg xray but has pain and swelling still Cardiac Chest Pain Chest pain indicative of cardiac No Timing/Duration this evening Severity moderate ALLERGIES Coded Allergies: Penicillins (Mild, 07/17/17) Home Medications Reported Medications No Known Home Medications History Medical History General CAD? No Angina: No [place]: No Hypertension? No Hyperlipidemia? No CHF? No DVT? No PE? No COPD? No Asthma? No Anemia? No GERD? No Gastric ulcers? No GI Bleed? No Hernia? No Thyroid Problems? No Hypothyroidism? No CVA? No Seizures? No Diabetes? No Renal Insuffiency? No End Stage Renal Disease? No UTI? No Stones? No BPH? No GB Disease: No Nephritic Syndrome? No Asplenia? No Hepatitis? No Sickle Cell Disease? No Arthritis? No Migraines? No Cataracts? No Glaucoma? No MRSA? No HIV? No TB? No Anxiety? No Depression? No Cancer? No More? 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 Respiratory denies cough, denies shortness of breath, denies wheezing Cardiovascular denies chest pain, denies syncope Gastrointestinal denies abdominal pain, denies diarrhea, denies vomiting Genitourinary denies: dysuria, frequency, hesitancy, hematuria. Musculoskeletal see HPI, denies back pain, joint pain, joint swelling, denies neck pain Skin denies rash Psychiatric/Neurological denies headache, denies seizure Physical Exam Vital Signs Vital Signs Date Time Temp Pulse Resp B/P Pulse O2 O2 Flow FiO2 Ox Delivery Rate 07/17 2123 98.1 85 16 137/80 98 - WBC >12,000 or <4,000 or 10% bands? 2 or more SIRS Criteria Met? B/P:137/80 MAP:99 Creatinine >2.0? UA output<0.5ml/kg/hr for 2 hrs? Platelet count >100,000? Lactate >2.0mmol/1? INR >1.2 or PTT > than 60 sec? Evidence of Organ Dysfunction? Provider documented clinical suspician of infection? N Sepsis Criteria Count: 0 Sepsis Risk: Low Sepsis Risk General Appearance no apparent distress Eye Exam - bilateral eye PERRL, bilateral eye EOMI Ear, Nose, Throat normal ENT inspection Neck supple Respiratory Status No: respiratory distress. 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 No Departure Departure Time of Disposition 2150 Disposition DC Home or Self Care(routine) Clinical Impression Primary Impression: Left wrist sprain Qualifiers: Encounter type: initial encounter Qualified Code: S63.502A - Unspecified sprain of left wrist, initial encounter Secondary Impressions: Tenosynovitis Condition STABLE Referrals CHRIS MCDANIELS (Family) Patient Instructions DI for Tenosynovitis Additional Instructions use meds and see pcp for follow up and wear splint Discharge Counseling Counseled pt/family regarding diagnosis, test results, medications/RX, follow up needs Prescriptions Current Visit Scripts Prednisone (Prednisone 20MG) 20 MG PO BID #10 TAB ED Critical Care Critical Care No Comments old records obtained at [id number]
[2017-07-17 22:04] VITALS: BP 137/80
== END 2017-07-17 22:05 | disposition home or self-care (01) ==
LOC: ER 21:16
DX: S63.502A Unspecified sprain of left wrist, initial encounter (principal); X50.0XXA Overexertion from strenuous movement or load, initial encounter; Y93.89 Activity, other specified; Y92.89 Other specified places as the place of occurrence of the external cause; Y99.0 Civilian activity done for income or pay; F17.210 Nicotine dependence, cigarettes, uncomplicated